=== PATIENT | female | born 1980 | race Caucasian/White ===

== ENCOUNTER 2018-07-23 00:46 | Inpatient (IN) ==
[2018-07-23] MEDS ORDERED: Ketorolac Inj 30 MG/ML (IVP) Vial IV.PUSH ONE (01:20)
[2018-07-23] MEDS ORDERED: HYDROmorphone PF Inj 0.5 MG/0.5 ML Syringe IV.PUSH STA (01:21)
[2018-07-23] MEDS ORDERED: Sod Chloride 0.9% Inj 1,000 ML IV.SIG SCH (01:30)
[2018-07-23] MEDS ORDERED: HYDROmorphone PF Inj 2 MG/ML Vial IV.PUSH STA (01:49)
[2018-07-23 02:12] LABS: Baso % (Auto) 0.5 % (0.0-2.0); Eos # (Auto) 0.1 th/mm3 (0.0-0.4); Hematocrit 37.2 % (35.0-46.0); Hemoglobin 13.1 gm/dL (11.6-15.3); Lymph % (Auto) 12.9 % (9.0-44.0); Mean Corpuscular HGB Conc 35.2 % (32.0-36.0); Mean Corpuscular Hemoglobin 30.8 pg (27.0-34.0); Mean Corpuscular Volume 87.7 fL (80.0-100.0); Mean Platelet Volume 8.4 fL (7.0-11.0); Mono # (Auto) 0.7 th/mm3 (0.0-0.9); Mono % (Auto) 8.4 % (0.0-8.0); Neut # (Auto) 6.2 th/mm3 (1.8-7.7); Neut % (Auto) 77.2 % (16.0-70.0); Platelet Count 222 th/mm3 (150-450); Red Blood Count 4.24 mil/mm3 (4.00-5.30); Red Cell Distribution Width 13.2 % (11.6-17.2)
[2018-07-23 02:26] LABS: Alanine Aminotransferase 10 U/L (10-53); Anion Gap 9 meq/L (5-15); Aspartate Aminotransferase 9 U/L (15-37); Blood Urea Nitrogen 10 mg/dL (7-18); Calcium 8.4 mg/dL (8.5-10.1); Carbon Dioxide 23.5 meq/L (21.0-32.0); Chloride 109 meq/L (98-107); Glomerular Filtration Rate Greater Than 89 mL/min (>89); Glucose,Random 94 mg/dL (74-106); Potassium 3.6 meq/L (3.5-5.1); Sodium 141 meq/L (136-145)
[2018-07-23 02:28] LABS: Alkaline Phosphatase 56 U/L (45-117); Total Protein 7.8 g/dL (6.4-8.2)
[2018-07-23] MEDS ORDERED: Gadobutrol PF 7.5 MMOL/7.5 ML Vial (for RAD) IV.SIG ONE (03:47)
--- NOTE | 2018-07-23 04:28 | MR ---
EXAM DATE: 07/23/2018 4:06 AM EDT AGE/SEX: 38 years / Female INDICATIONS: Osteomyelitis. low back pain with right radiculopathy. CLINICAL DATA: This is the patient's initial encounter. Patient reports that signs and symptoms have been present for 2 days and indicates a pain score of 5/10. MEDICAL/SURGICAL HISTORY: Sepsis. MRSA right hip. Endocarditis. . RIght hip surgery for osteom yelitis. COMPARISON: No prior exams available for comparison. TECHNIQUE: Multiplanar, multisequence MRI examination of the lumbar spine was performed without and with 7cc ml Gadavist (gadobutrol) contrast as a single exam dose. FINDINGS: There is no acute fracture or subluxation of the lumbar spine. Chronic L5 pars defects are present wi thout spondylolisthesis or significant marrow edema. No evidence of osteomyelitis. Conus terminus is normal at the level of L1. T12-L1: Normal. L1-L2: Normal. L2-L3: Slightly desiccated disc. No significant loss of height. There is diffuse bulging of the dis c annulus and mild bilateral facet osteoarthritis. There is mild foraminal stenosis, mostly on the le ft. L3-L4: The disc is desiccated. There is slight loss of height. There is bulging of the annulus. A f ocal central to right paracentral high intensity zone is present. There is mild bilateral facet osteo arthritis. No significant foraminal or spinal stenosis. L4-L5: The disc is desiccated and has mild loss of height. There is a moderate-sized central to rig ht paracentral extruded disc fragment. In the adjacent subarticular recess region is a rim-enhancing fluid collection that measures approximately 9 x 16 x 23 mm in size. There is moderate to severe spin al stenosis, especially the right lateral recess, and this extends downward within the central canal to L5/S1. The epidural enhancement extends down to S1 and into the right foramen at both L4/L5 and L5 /S1. L5-S1: The disc is slightly desiccated. Minimal loss of height. There is bulging of the annulus and moderate right, mild left facet osteoarthritis. Right lateral recess and right foraminal narrowing p resent.. CONCLUSION: 1. Right paracentral fluid collection posterior to the L5 vertebral body and with surrounding epidur al enhancement within the L4/L5 and L5/S1 right lateral recesses and foramina. There is associated ma ss effect on the transiting right L5 and S1 nerve roots and also the exiting L4 and L5 nerve roots. T he fluid collection is nonspecific; since there is a central to right paracentral extruded disc fragm ent at L4/L5, its possible this represents an epidural hematoma with reactive enhancement. An epidura l abscess is possible in the proper clinical setting. The fluid collection itself measures approximat teofilo 9 x 16 x 23 mm. The surrounding epidural enhancement is much larger. 2. No evidence of osteomyelitis. 3. Mild and uncomplicated/typical-appearing degenerative changes at L2/L3 and L3/L4 as described. Th ere is an associated focal annular fissure posteriorly of the L3/L4 disc. 4. Perivertebral soft tissues are within normal limits. 5. Chronic L5 pars defects. No associated spondylolisthesis. No acute fracture. Electronically signed by: Rogelio Fletcher MD 07/23/2018 4:27 AM EDT
[2018-07-23] MEDS ORDERED: Vancomycin Inj 1 GM/200 ML PIGGYBACK IV.SIG ONE (04:31)
[2018-07-23] MEDS ORDERED: Vancomycin Consult Pharmacy OTHER PRN (05:18)
--- NOTE | 2018-07-23 05:19 | ED ---
HPI General Chief complaint: Back Pain/Injury Stated complaint: Back Pain Time Seen by Provider: 07/23/18 01:02 Source: patient Mode of arrival: ambulatory Limitations: no limitations History of Present Illness HPI narrative: Patient is a 38-year-old female comes in complaining of lower back and hip pain. She has history of IV drug abuse in the past, but says she stopped using 2 years ago. He does report a relapse with 2 uses in May. She says she has not injected herself since that time. However, she does report self-medicating yesterday. She says she has had the pain on and off for the past few weeks, but it is been worse in the past 5 days. She reports history of fevers. She denies any injuries. She says the pain does radiate down her right leg. She says it feels like when she had osteomyelitis in the past. Severity is moderate. Related Data Allergies Allergy/AdvReac Type Severity Reaction Status Date / Time *MDRO Multi-Drug Resistant AdvReac Unknown Uncoded 08/13/16 09:54 Organism Review of Systems ROS: all other systems reviewed are negative Constitutional Reports fever(s) Cardiovascular Denies edema and Denies dyspnea Respiratory Denies cough Gastrointestinal Denies nausea and Denies vomiting Musculoskeletal Reports back pain Integumentary/Breasts Denies lesions and Denies rash Neurologic Denies focal weakness and Denies numbness PMFSH Medical History Medical History Chronic back pain (Acute) Degenerative disk disease (Acute) Drug abuse (Acute) Sciatica (Acute) Surgical History Surgical History No history of previous surgery (Acute) Social History Social History Substance History: Active Abuse Second Hand Smoke Exposure: No Smoking Status: Current every day smoker Tobacco Type: Cigarettes How Often Do You Have a Drink Containing Alcohol: Never Recent Travel in [facility] within the Last 8 Weeks: No Recent Out of Country Travel within the Last 8 Weeks: No Substance Abuse Detail Opiates: Substance Use Status: Active Route Used Substance Abuse: By Mouth Immunization History Tetanus Immunization: Unsure Hx Influenza Vaccine This Season: No Exam Narrative Exam Narrative: GENERAL: Awake and alert, no acute distress. SKIN: Focused skin assessment warm/dry. No wounds or signs of infection. HEAD: Atraumatic. Normocephalic. EYES: Pupils equal and round. No scleral icterus. ENT: Mucous membranes pink and moist. NECK: Trachea midline. No JVD. CARDIOVASCULAR: Regular rate and rhythm. No murmur appreciated. RESPIRATORY: No accessory muscle use. Clear to auscultation. Breath sounds equal bilaterally. GASTROINTESTINAL: Abdomen soft, non-tender, nondistended. MUSCULOSKELETAL: No obvious deformities. No clubbing. No cyanosis. No edema. Tender to palpation of the lower spine. Pain with movement of the right leg. Pulses intact. NEUROLOGICAL: Awake and alert. No obvious cranial nerve deficits. Motor grossly within normal limits. Normal speech. PSYCHIATRIC: Appropriate mood and affect; insight and judgment normal. Course Initial Documented Vital Signs Temperature 97.7 F 07/23/18 00:47 Pulse Rate 140 H 07/23/18 00:47 Respiratory Rate 20 07/23/18 00:47 Blood Pressure 122/83 07/23/18 00:47 Last Documented Vital Signs Temperature 97.7 F 07/23/18 00:47 Pulse Rate 117 H 07/23/18 00:59 Respiratory Rate 20 07/23/18 00:59 Blood Pressure 113/70 07/23/18 00:59 Pulse Oximetry 97 07/23/18 00:59 Medical Decision Making MDM Narrative Medical decision making narrative: Patient is a 38-year-old female who comes in complaining of low back pain with history of fevers. Exam shows tenderness to palpation. IV established, labs sent. Labs show elevated CRP. Patient originally went to [facility], but left because she did not like the way she was being treated. Records obtained from [facility] show an MRI without contrast that was concerning for an abscess. MRI here performed with contrast confirms the epidural abscess. Blood cultures sent. Patient given antibiotics. Given pain medicine. She will be admitted for further management. Medical Screen Exam Complete: Yes Emergency Medical Condition: Yes Medical Records Medical records reviewed: Yes I reviewed the patient's medical records. Lab Data Lab results reviewed: Yes I reviewed the patient's lab results. Result diagrams: 07/23/18 01:45 07/23/18 01:45 Lab Results 08/30/18 08/30/18 08/30/18 Range/Units 01:45 01:45 01:45 WBC 8.0 (4.0-11.0) th/mm3 RBC 4.24 (4.00-5.30) mil/mm3 Hgb 13.1 (11.6-15.3) gm/dL Hct 37.2 (35.0-46.0) % MCV 87.7 (80.0-100.0) fL MCH 30.8 (27.0-34.0) pg MCHC 35.2 (32.0-36.0) % RDW 13.2 (11.6-17.2) % Plt Count 222 (150-450) th/mm3 MPV 8.4 (7.0-11.0) fL Neut % (Auto) 77.2 H (16.0-70.0) % Lymph % (Auto) 12.9 (9.0-44.0) % [place] % (Auto) 8.4 H (0.0-8.0) % Eos % (Auto) 1.0 (0.0-4.0) % Baso % (Auto) 0.5 (0.0-2.0) % Neut # (Auto) 6.2 (1.8-7.7) th/mm3 Lymph # (Auto) 1.0 (1.0-4.8) th/mm3 [place] # (Auto) 0.7 (0.0-0.9) th/mm3 Eos # (Auto) 0.1 (0.0-0.4) th/mm3 Baso # (Auto) 0.0 (0.0-0.2) th/mm3 WBC Differential . Differential Comment Auto diff final ESR 27 H (0-20) mm/hr Sodium 141 (136-145) meq/L Potassium 3.6 (3.5-5.1) meq/L Chloride 109 H (98-107) meq/L Carbon Dioxide 23.5 (21.0-32.0) meq/L Anion Gap 9 (5-15) meq/L BUN 10 (7-18) mg/dL Creatinine 0.71 (0.50-1.00) mg/dL Estimated GFR Greater than 89 (>89) mL/min Random Glucose 94 (74-106) mg/dL Calcium 8.4 L (8.5-10.1) mg/dL Total Bilirubin 0.4 (0.2-1.0) mg/dL AST 9 L (15-37) U/L ALT 10 (10-53) U/L Alkaline Phosphatase 56 (45-117) U/L C-Reactive Protein 13.00 H (0.00-0.30) mg/dL Total Protein 7.8 (6.4-8.2) g/dL Albumin 3.0 L (3.4-5.0) g/dL Imaging Data Radiologist's impression: Lumbar Spine MRI 07/23/18 02:39 CONCLUSION: 1. Right paracentral fluid collection posterior to the L5 vertebral body and with surrounding epidural enhancement within the L4/L5 and L5/S1 right lateral recesses and foramina. There is associated mass effect on the transiting right L5 and S1 nerve roots and also the exiting L4 and L5 nerve roots. The fluid collection is nonspecific; since there is a central to right paracentral extruded disc fragment at L4/L5, its possible this represents an epidural hematoma with reactive enhancement. An epidural abscess is possible in the proper clinical setting. The fluid collection itself measures approximately 9 x 16 x 23 mm. The surrounding epidural enhancement is much larger. 2. No evidence of osteomyelitis. 3. Mild and uncomplicated/typical-appearing degenerative changes at L2/L3 and L3/L4 as described. There is an associated focal annular fissure posteriorly of the L3/L4 disc. 4. Perivertebral soft tissues are within normal limits. 5. Chronic L5 pars defects. No associated spondylolisthesis. No acute fracture. Discharge Plan Discharge Disposition Patient Disposition: 30 Still Patient Discharge Condition Condition: Stable Discharge Details Diagnosis: Epidural abscess Physicians Team ED Provider: Kristi Mcarthur Primary Care Provider: Primary Care Udayi,No Discharge Interventions Interventions: Vital Signs Last Done: 07/23/18 00:59 Status ED Status: With Doctor
[2018-07-23] MEDS ORDERED: Naloxone Inj 0.4 MG/ML Vial IV.PUSH PRN (05:58)
--- NOTE | 2018-07-23 06:00 | P.HPIM ---
History of Present Illness Primary Care Physician: No Primary Care Physician History of Present Illness: 38-year-old female with a history of endocarditis in the past, as well as right hip osteomyelitis status post treatment several years ago who presents with a one-month history of gradually worsening low back pain, with one-week history of constant sharp lower back pain radiating to the right hip. Denies any right leg weakness. Patient also experienced fever over the past few days. Denies any chest pain, shortness of breath, nausea, vomiting. She does report using IV Dilaudid in May. Inpatient Certification: I certify that the inpatient services were ordered in accordance with Medicare regulations governing the order. This includes certification that hospital inpatient services are reasonable and necessary and in the case of services not specified as inpatient-only under 42 CFR 419.22(n), that they are appropriately provided as inpatient services in accordance to with the 2-midnight benchmark under 43 CFR 412.3(e) Estimated Total Length of Stay (Days): 3 Plans for Post Hospital Care: SNF Review of Systems All other systems reviewed negative except as stated in HPI PMFSH - History History Provided By: Patient - Medical History Medical History: Medical History (Last Reviewed 07/23/18 @ 05:16 by Kristi Mcarthur MD) Chronic back pain Degenerative disk disease Drug abuse Sciatica - Surgical History Surgical History: Surgical History (Last Reviewed 07/23/18 @ 05:16 by Kristi Mcarthur MD) No history of previous surgery - Family History Family History: Family History (Last Updated 07/23/18 @ 05:53 by Hank Molina MD) Father Lung cancer Mother Lung cancer Father CAD (coronary artery disease) Mother CAD (coronary artery disease) - Tobacco History Second Hand Smoke Exposure: No Tobacco Use In Past 30 Days: Yes Smoking Status: Current every day smoker Tobacco Type: Cigarettes - Alcohol History How Often Do You Have a Drink Containing Alcohol: Never - Substance Use History Substance History: Active Abuse - Substance Use Type Opiates Status: Active Route Used: By Mouth - Travel History Recent Travel in the [place] Within the Last 8 Weeks: No Recent Travel Out of the Country Within the Last 8 Weeks: No - Immunization History Tetanus Immunization: Unsure Hx Influenza Vaccine This Season: No Medications and Allergies Active Medications: Active Medications Sodium Chloride (Ns Inj) 1,000 mls @ 0 mls/hr IV.SIG BOLUS NURY Last Admin: 07/23/18 01:57 Dose: 1,000 mls/hr Cefepime HCl 2,000 mg/ Sodium (Chloride) 100 mls @ 200 mls/hr IV.SIG Q8H NURY Sodium Chloride (Ns Inj) 1,000 mls @ 100 mls/hr IV.CONT .Q10H NURY Pharmacy Profile Note (Vancomycin Consult Pharmacy) 1 each OTHER UNSCH PRN PRN Reason: Pharmacy to dose Sodium Chloride (Ns Flush) 2 ml IV.FLUSH BID NURY Sodium Chloride (Ns Flush) 2 ml IV.FLUSH PRN PRN PRN Reason: FLUSH AFTER USING IV ACCESS Allergies Allergy/AdvReac Type Severity Reaction Status Date / Time *MDRO Multi-Drug Resistant AdvReac Unknown Uncoded 08/13/16 09:54 Organism Exam Vital signs: Vital Signs 07/23/18 00:47 07/23/18 00:59 Temperature 97.7 F Pulse Rate 140 H 117 H Respiratory Rate 20 20 Blood Pressure 122/83 113/70 Pulse Oximetry 97 Intake & Output 07/22/18 07/22/18 07/23/18 06:59 18:59 06:59 Weight 65.771 kg Narrative: GENERAL: Patient lying in bed. Appears uncomfortable. Alert and oriented 3. Patient examined with nurse present. SKIN: Warm and dry. HEAD: Atraumatic. Normocephalic. EYES: Pupils equal and round. No scleral icterus. No injection or drainage. ENT: No nasal bleeding or discharge. Mucous membranes pink and moist. NECK: Trachea midline. No JVD. CARDIOVASCULAR: Regular rate and rhythm. RESPIRATORY: No accessory muscle use. Clear to auscultation. Breath sounds equal bilaterally. GASTROINTESTINAL: Abdomen soft, non-tender, nondistended. Hepatic and splenic margins not palpable. MUSCULOSKELETAL: Extremities without clubbing, cyanosis, or edema. No obvious deformities. Spine tender to palpation at level of L5. No erythema or observed swelling. NEUROLOGICAL: Awake and alert. No obvious cranial nerve deficits. Motor grossly within normal limits. Five out of 5 muscle strength in the arms and legs. Normal speech. PSYCHIATRIC: Appropriate mood and affect; insight and judgment normal. Results - Labs CBC & Chem 7: 07/23/18 01:45 07/23/18 01:45 Labs: Short CBC 07/23/18 Range/Units 01:45 WBC 8.0 (4.0-11.0) th/mm3 Hgb 13.1 (11.6-15.3) gm/dL Hct 37.2 (35.0-46.0) % Plt Count 222 (150-450) th/mm3 BMP 07/23/18 01:45 Sodium 141 Potassium 3.6 Chloride 109 H Carbon Dioxide 23.5 BUN 10 Creatinine 0.71 Calcium 8.4 L Liver Function 07/23/18 Range/Units 01:45 Total Bilirubin 0.4 (0.2-1.0) mg/dL AST 9 L (15-37) U/L ALT 10 (10-53) U/L Alkaline Phosphatase 56 (45-117) U/L Albumin 3.0 L (3.4-5.0) g/dL - Imaging Impressions Lumbar Spine MRI 07/23/18 02:39 CONCLUSION: 1. Right paracentral fluid collection posterior to the L5 vertebral body and with surrounding epidural enhancement within the L4/L5 and L5/S1 right lateral recesses and foramina. There is associated mass effect on the transiting right L5 and S1 nerve roots and also the exiting L4 and L5 nerve roots. The fluid collection is nonspecific; since there is a central to right paracentral extruded disc fragment at L4/L5, its possible this represents an epidural hematoma with reactive enhancement. An epidural abscess is possible in the proper clinical setting. The fluid collection itself measures approximately 9 x 16 x 23 mm. The surrounding epidural enhancement is much larger. 2. No evidence of osteomyelitis. 3. Mild and uncomplicated/typical-appearing degenerative changes at L2/L3 and L3/L4 as described. There is an associated focal annular fissure posteriorly of the L3/L4 disc. 4. Perivertebral soft tissues are within normal limits. 5. Chronic L5 pars defects. No associated spondylolisthesis. No acute fracture. Caprini VTE Risk Assessment Caprini VTE Risk Assessment: No/Low Risk (score <= 1) Caprini Risk Assessment Model: Point Value = 1 Point Value = 2 Point Value = 3 Point Value = 5 Age 41-60 Minor surgery BMI > 25 kg/m2 Swollen legs Varicose veins or History of unexplained or recurrent spontaneous Oral contraceptives or hormone replacement Sepsis (< 1 month) Serious lung disease, including pneumonia (< 1 month) Abnormal pulmonary function Acute myocardial infarction Congestive heart failure (< 1 month) History of inflammatory bowel disease Medical patient at bed rest Age 61-74 Arthroscopic surgery Major open surgery (> 45 min) Laparoscopic surgery (> 45 min) Malignancy Confined to bed (> 72 hours) Immobilizing plaster cast Central venous access Age >= 75 History of VTE Family history of VTE Factor V Leiden Prothrombin [id number] Lupus anticoagulant Anticardiolipin antibodies Elevated serum homocysteine Heparin-induced thrombocytopenia Other congenital or acquired thrombophilia Stroke (< 1 month) Elective arthroplasty Hip, pelvis, or leg fracture Acute spinal cord injury (< 1 month) Prophylaxis Regimen: Total Risk Factor Score Risk Level Prophylaxis Regimen 0-1 Low Early ambulation 2 Moderate Order ONE of the following: *Sequential Compression Device (SCD) *Heparin 5000 units SQ BID 3-4 Higher Order ONE of the following medications: *Heparin 5000 units SQ TID *Enoxaparin/Lovenox 40 mg SQ daily (WT < 150 kg, CrCl > 30 mL/min) *Enoxaparin/Lovenox 30 mg SQ daily (WT < 150 kg, CrCl > 10-29 mL/min) *Enoxaparin/Lovenox 30 mg SQ BID (WT < 150 kg, CrCl > 30 mL/min) AND/OR *Sequential Compression Device (SCD) 5 or more Highest Order ONE of the following medications: *Heparin 5000 units SQ TID (Preferred with Epidurals) *Enoxaparin/Lovenox 40 mg SQ daily (WT < 150 kg, CrCl > 30 mL/min) *Enoxaparin/Lovenox 30 mg SQ daily (WT < 150 kg, CrCl > 10-29 mL/min) *Enoxaparin/Lovenox 30 mg SQ BID (WT < 150 kg, CrCl > 30 mL/min) AND *Sequential Compression Device (SCD) Assessment and Plan - Plan //Epidural abscess. Suspected bacterial infection //Suspected sepsis. //Possible endocarditis -With tachycardia, subjective fevers at home -We will order echocardiogram. = Epidural abscess seen on CT lumbar spine. Sedimentation rate 27, CRP 13. Blood cultures pending. Start on broad-spectrum antibiotics, will consult neurosurgery and infectious disease. Follow-up blood cultures. By mouth narcotics for pain control //History of IV drug use. Cessation counseling provided. Avoid IV narcotics. Discussed Condition With: Patient, nurse, ED physician.
[2018-07-23] MEDS: oxyCODONE/Acetaminophen 10/325 Tablet PO PRN ×2 (06:19→22:03)
[2018-07-23] MEDS ORDERED: Vancomycin Inj 1,000 MG in Sodium Chlor 0.9% Inj 250 ML IV.SIG ONE (07:00)
[2018-07-23] MEDS: Sod Chloride 0.9% Inj 1,000 ML IV.CONT SCH ×2 (08:09→20:38)
--- NOTE | 2018-07-23 09:09 | P.CONNS ---
History of Present Illness Service: Neurosurgery Consult date: 07/23/18 Requesting Physician: Hank Molina Reason for Consult: L5-S1 epidural abscess Primary Care Provider: No Primary Care Physician Family Provider: No Primary Care Physician History of Present Illness: 38-year-old female with complaint of low back pain for the past 6 weeks and more recently over the last week or so she is developed pain rating down the right leg into the foot. She relates a history of right hip abscess/ infection several years ago which required surgical drainage at [facility] reportedly and has had subsequent numbness in the right thigh and leg which is chronic. She denies any left lower extremity symptoms. She has a history of IV drug abuse and states that she had quit for 2 years ago but in May 2018 she shot up Dilaudid again couple times but relates that she has not injected any IV drugs since then. She also relates having a low-grade fever. She relates that she was diagnosed with endocarditis twice. She was also seen at [facility] yesterday and relates that she was diagnosed with an abscess but did not like the way they were treating her and left hospital and came to [facility]. Denies any bowel bladder incontinence. MRI scan lumbar spine obtained reveals right L5-S1 epidural ventrolateral collection suspicious for an abscess along with L4-5 central disc protrusion. There is enhancement around this fluid collection with associated spinal stenosis. She relates that her pain is intractable and the pain medication she is getting her not doing anything for her and requesting that something stronger be given. She relates anytime she moves or tries to get up the right hip leg pain worsens with excruciating pain. She was sleeping when I first entered room but subsequently started crying and related severe pain. Review of Systems Constitutional: Reports fever(s), Denies anorexia, Denies body ache(s), Denies chills, Denies daytime sleepiness, Denies excessive sweating, Denies fatigue, Denies headache(s), Denies increased appetite, Denies lack of energy, Denies malaise, Denies night sweats, Denies weakness, Denies weight gain, Denies weight loss, Denies other Eyes: Denies blind spots, Denies blurry vision, Denies bulging eyes, Denies change in vision, Denies double vision, Denies discharge, Denies dry eyes, Denies floaters, Denies irritation, Denies itchy eyes, Denies loss of vision, Denies pain, Denies requires corrective lenses, Denies sensitivity to light, Denies other Ears, Nose, Mouth, and Throat: Denies abnormal hearing, Denies bleeding gums, Denies bad breath, Denies change in voice, Denies dental pain, Denies difficulty swallowing, Denies dizziness, Denies dry mouth, Denies ear discharge , Denies ear pain, Denies facial pain, Denies headache(s), Denies hearing loss, Denies hoarseness, Denies lip swelling, Denies nosebleed, Denies mouth lesions, Denies mouth pain, Denies nasal congestion, Denies nasal discharge, Denies nasal obstruction, Denies nasal trauma, Denies neck lump, Denies neck pain, Denies nose pain, Denies pain with swallowing, Denies poor balance, Denies post nasal drip, Denies ringing in the ears, Denies sinus pain, Denies sinus pressure , Denies sore throat, Denies throat swelling, Denies tongue swelling, Denies other Cardiovascular: Denies chest pain, Denies chest pain at rest, Denies chest pain with activity, Denies excessive sweating, Denies fainting, Denies fast heart rate, Denies foot swelling, Denies generalized swelling, Denies irregular heart rhythm, Denies leg pain with activity, Denies leg sores, Denies leg swelling, Denies lightheadedness, Denies radiating jaw, neck or arm pain, Denies rapid, pounding, or irregular heartbeat, Denies shortness of breath, Denies shortness of breath with activity, Denies shortness of breath when lying down, Denies shortness of breath causing sudden awakening, Denies slow heart rate, Denies other Gastrointestinal: Denies abdominal pain, Denies belching, Denies black, tarry stools, Denies bloating, Denies bright, red blood in stools, Denies change in bowel habits, Denies constant urge to pass stool, Denies change in stools, Denies coffee ground vomit, Denies constipation, Denies cramping, Denies difficulty swallowing, Denies excessive passing of gas, Denies feeling full early, Denies heartburn, Denies incontinent of stools, Denies loose stools, Denies nausea, Denies pain with swallowing, Denies vomiting, Denies vomiting blood, Denies other Genitourinary: Denies abnormal periods, Denies abnormal vaginal bleeding, Denies absent period, Denies bleeding between periods, Denies blood in urine, Denies difficulty starting urination, Denies difficulty urinating, Denies dribbling after urination, Denies frequent nighttime urination, Denies genital itching, Denies genital lesions, Denies heavy periods, Denies hot flashes, Denies light periods, Denies nipple discharge, Denies painful intercourse, Denies painful periods, Denies painful urination, Denies pelvic pain, Denies prolapse symptoms, Denies sexual problems, Denies side pain, Denies urinary incontinence, Denies urinary urgency, Denies vaginal discharge, Denies vaginal dryness, Denies vaginal odor, Denies vaginal itching, Denies other Musculoskeletal: Reports abnormal walking, Reports back pain, Reports joint pain , Reports limited joint movement, Reports numbness, Reports stiffness Skin/Breast: Denies acne, Denies bleeding lesions, Denies boil, Denies breast swelling, Denies breast skin changes, Denies breast pain, Denies breast lump, Denies change in breast shape, Denies change in hair, Denies change in skin color, Denies changing lesions, Denies dry skin, Denies excessive hair growth, Denies hair loss, Denies itching, Denies lesions, Denies nail changes, Denies new lesions, Denies nipple discharge, Denies non-healing lesions, Denies redness , Denies sensitivity to light, Denies rash, Denies skin pain, Denies skin ulcer , Denies sores, Denies stretch ybarra, Denies unusual bruising, Denies wounds, Denies yellowing of the skin, Denies other Neurologic: Reports numbness, Reports sensory deficit, Denies abnormal hearing, Denies abnormal movements, Denies abnormal speech, Denies abnormal walking, Denies behavioral changes, Denies burning sensations, Denies confusion, Denies dizziness, Denies fainting, Denies frequent falls, Denies headache(s), Denies lack of coordination, Denies localized weakness, Denies loss of vision, Denies memory loss, Denies other visual disturbances, Denies radiating pain, Denies restless legs, Denies convulsions, Denies seizure-like activity, Denies tingling , Denies tingling/numbness/burning sensations, Denies tremor(s), Denies unsteadiness, Denies weakness, Denies other Psychiatric: Denies abnormal sleep pattern, Denies anxiety, Denies behavioral changes, Denies change in appetite, Denies change in sex drive, Denies confusion , Denies depression, Denies difficulty concentrating, Denies hearing things others do not hear, Denies hopelessness, Denies irritability, Denies lack of enjoyment, Denies memory loss, Denies mood swings, Denies panic attacks, Denies paranoia, Denies seeing things others do not see, Denies sensing things others do not sense, Denies tactile hallucinations, Denies thoughts of hurting/killing others, Denies thoughts of hurting/killing yourself, Denies other Endocrine: Denies cold intolerance, Denies excessive sweating, Denies flushing, Denies heat intolerance, Denies increased hunger, Denies increased thirst, Denies increased urination, Denies rapid, pounding, or irregular heartbeat, Denies other Allergic/Immunologic: Denies GI upset with certain foods, Denies hives, Denies itchy eyes, Denies lip swelling, Denies seasonal runny nose, Denies throat swelling, Denies tongue swelling, Denies wheezing, Denies other PMFSH - History History Provided By: Patient - Medical History Medical History: Medical History (Last Updated 07/23/18 @ 08:52 by Jaspal Bowie MD) Abscess of right hip Chronic back pain Degenerative disk disease Drug abuse Endocarditis Hip osteomyelitis, right Sciatica - Family History Family History: Family History (Last Updated 07/23/18 @ 05:53 by Hank Molina MD) Father Lung cancer Mother Lung cancer Father CAD (coronary artery disease) Mother CAD (coronary artery disease) - Tobacco History Second Hand Smoke Exposure: No Tobacco Use In Past 30 Days: Yes Smoking Status: Current every day smoker Tobacco Type: Cigarettes - Alcohol History How Often Do You Have a Drink Containing Alcohol: Never - Substance Use History Substance History: Active Abuse - Substance Use Type Opiates Status: Active Route Used: By Mouth - Travel History Recent Travel in the [facility] Within the Last 8 Weeks: No Recent Travel Out of the Country Within the Last 8 Weeks: No - Immunization History Tetanus Immunization: Unsure Hx Influenza Vaccine This Season: No Medications and Allergies Active Medications: Active Medications Sodium Chloride (Ns Inj) 1,000 mls @ 0 mls/hr IV.SIG BOLUS [facility] Last Admin: 07/23/18 01:57 Dose: 1,000 mls/hr Cefepime HCl 2,000 mg/ Sodium (Chloride) 100 mls @ 200 mls/hr IV.SIG Q8H NURY Sodium Chloride (Ns Inj) 1,000 mls @ 100 mls/hr IV.CONT .Q10H [facility] Last Admin: 07/23/18 08:09 Dose: 100 mls/hr Naloxone HCl (Narcan Inj) 0.4 mg IV.PUSH UNSCH PRN PRN Reason: SEE LABEL COMMENTS Oxycodone/Acetaminophen (Percocet 10/325 Mg) 1 tab PO Q6H PRN PRN Reason: PAIN SCALE 6 TO 10 Last Admin: 07/23/18 06:19 Dose: 1 tab Oxycodone/Acetaminophen (Percocet 5/325 Mg) 1 tab PO Q6H PRN PRN Reason: PAIN SCALE 3 TO 5 Pharmacy Profile Note (Vancomycin Consult Pharmacy) 1 each OTHER UNSCH PRN PRN Reason: Pharmacy to dose Sodium Chloride (Ns Flush) 2 ml IV.FLUSH BID [facility] Last Admin: 07/23/18 08:09 Dose: 2 ml Sodium Chloride (Ns Flush) 2 ml IV.FLUSH PRN PRN PRN Reason: FLUSH AFTER USING IV ACCESS Allergies Allergy/AdvReac Type Severity Reaction Status Date / Time *MDRO Multi-Drug Resistant AdvReac Unknown Uncoded 08/13/16 09:54 Organism Exam Vital signs: Vital Signs 07/23/18 00:47 07/23/18 00:59 07/23/18 06:08 Temperature 97.7 F Pulse Rate 140 H 117 H 87 Respiratory Rate 20 20 18 Blood Pressure 122/83 113/70 106/70 Pulse Oximetry 97 99 07/23/18 07:55 Temperature 99.3 F Pulse Rate 95 H Respiratory Rate 16 Blood Pressure 98/55 L Pulse Oximetry 96 Intake & Output 07/22/18 07/23/18 07/23/18 18:59 06:59 18:59 Weight 65.771 kg - Constitutional agitated - Routine HEENT Exam Head: Present: normocephalic, atraumatic Eye: Present: EOMI, PERRL ENT: Present: mucous membranes moist, oropharynx clear, nares patent, external ear normal - Routine Neck Exam Present: supple, full ROM Comments: Complains of right leg pain when she flexes her neck but no neck or thoracic back pain - Routine Respiratory Exam Present: CTA bilaterally - Routine Cardiovascular Exam Present: S1, S2, tachycardia - Routine Abdominal Exam Present: soft, normoactive bowel sounds - Routine Extremities Exam Present: full ROM, pulses intact Comments: Complains of severe right buttock hip and thigh pain with movement of the right leg - Routine Skin Exam Present: intact, petechiae, scars (Multiple IV injection sites in the upper and lower extremities are noted) - Routine Neurological Exam Present: oriented X3, CN II-XII intact, sensory deficit (Decreased sensation the right thigh around the surgery site and relates that she decreased sensation the whole leg compared to left side which is chronic), motor deficit ( Giveaway weakness proximally in the right thigh due to pain), moving all extremities, normal speech Results - Laboratory Findings CBC and BMP: 07/23/18 01:45 07/23/18 01:45 Abnormal lab findings: Abnormal Labs 07/23/18 07/23/18 07/23/18 01:45 01:45 01:45 Neut % (Auto) 77.2 H [place] % (Auto) 8.4 H ESR 27 H Chloride 109 H Calcium 8.4 L AST 9 L C-Reactive Protein 13.00 H Albumin 3.0 L - Diagnostic Findings Additional findings: Impressions Lumbar Spine MRI 07/23/18 02:39 CONCLUSION: 1. Right paracentral fluid collection posterior to the L5 vertebral body and with surrounding epidural enhancement within the L4/L5 and L5/S1 right lateral recesses and foramina. There is associated mass effect on the transiting right L5 and S1 nerve roots and also the exiting L4 and L5 nerve roots. The fluid collection is nonspecific; since there is a central to right paracentral extruded disc fragment at L4/L5, its possible this represents an epidural hematoma with reactive enhancement. An epidural abscess is possible in the proper clinical setting. The fluid collection itself measures approximately 9 x 16 x 23 mm. The surrounding epidural enhancement is much larger. 2. No evidence of osteomyelitis. 3. Mild and uncomplicated/typical-appearing degenerative changes at L2/L3 and L3/L4 as described. There is an associated focal annular fissure posteriorly of the L3/L4 disc. 4. Perivertebral soft tissues are within normal limits. 5. Chronic L5 pars defects. No associated spondylolisthesis. No acute fracture. Assessment and Plan - Assessment (1) Abscess in epidural space of lumbar spine Code(s): G06.1 - Intraspinal abscess and granuloma Status: Acute - Plan 38-year-old lady with a 6 week history of low back pain with subsequent radiation to the right leg with intractable pain. She has low-grade fever with elevated sed rate and C-reactive protein an MRI scan consistent with a L5-S1 epidural abscess eccentric to the right side. She has a history of IV drug abuse with Dilaudid more recently in May 2018 was last time she reportedly injected a few times. She has a history of endocarditis 2 as well as a right hip abscess and osteomyelitis treated several years ago. I recommended a L5-S1 laminectomy with epidural abscess evacuation and subsequent parenteral antibiotics for 6-8 weeks as per the discretion of infectious disease. She is also counseled on cessation of IV drug abuse otherwise any treatment efforts would like to be futile due to risk for recurrent infections with risk of paralysis/sepsis/. Pain management is also going to be challenging given her history of drug abuse and she understands that I do not participate in chronic pain management. The risks and benefits involved with the surgery were discussed and no guarantees given. She requested we proceed and accordingly we will have this undertaken today.
[2018-07-23] MEDS ORDERED: Bisacodyl 10 MG Supp RECTAL PRN (09:15)
[2018-07-23] MEDS ORDERED: Aluminum/Magnesium/Simethacone Susp 30 ML UDC PO PRN (09:15)
[2018-07-23] MEDS ORDERED: Menthol 5.8 MG Lozenge BUCCAL PRN (09:15)
[2018-07-23] MEDS ORDERED: Acetaminophen 325 MG Tablet PO PRN (09:15)
[2018-07-23] MEDS: Morphine Sulfate Inj 2 MG/ML Vial IV.PUSH PRN ×3 (09:36→22:40)
--- NOTE | 2018-07-23 10:16 | XR ---
EXAM DATE: 07/23/2018 10:13 AM EDT AGE/SEX: 38 years / Female INDICATIONS: . Infiltrate CLINICAL DATA: This is the patient's initial encounter. Patient reports that signs and symptoms have been present for 3 days and indicates a pain score of 10/10. MEDICAL/SURGICAL HISTORY: . endocarditis, hx of MRSA, Hep C, measles . hip surgery [place] [facility] [place]. . FINDINGS: AP and lateral views of the chest demonstrate the lungs to be symmetrically aerated without evidence of mass, infiltrate or effusion. The cardiomediastinal contours are unremarkable. Osseous structure s are intact. The previously noted patchy bilateral infiltrates have resolved. CONCLUSION: No acute intrathoracic disease. Electronically signed by: Ashvin Bansal MD 07/23/2018 10:15 AM EDT
--- NOTE | 2018-07-23 12:40 | P.PNIM ---
Subjective Interval history: 38-year-old female with a history of endocarditis in the past, as well as right hip osteomyelitis status post treatment several years ago who presents with a one-month history of gradually worsening low back pain, with one-week history of constant sharp lower back pain radiating to the right hip. Denies any right leg weakness. Patient also experienced fever over the past few days. Denies any chest pain, shortness of breath, nausea, vomiting. She does report using IV Dilaudid in PATIENT IS GOING FOR SURGERY WITH NEUROSURGERY TODAY REGARDING HER LUMBAR ABSCESS L5-S1 laminectomy with epidural abscess evacuation and subsequent parenteral antibiotics for 6-8 weeks as per the discretion of infectious disease. PATIENT ASKING FOR IV PAIN MEDS SOON SHE SAW HER RN AND MYSELF TO GO FOR SURGERY TODAY- NEEDS TO CONSENT WITH NEUROSURGERY AND ANESTHESIA BEFORE GETS PAIN MEDS WILL NEED PAIN CONTROL POST OP Physical Exam Vital signs: Vital Signs 07/23/18 00:47 07/23/18 00:59 07/23/18 06:08 Temperature 97.7 F Pulse Rate 140 H 117 H 87 Respiratory Rate 20 20 18 Blood Pressure 122/83 113/70 106/70 Pulse Oximetry 97 99 07/23/18 07:55 07/23/18 10:04 Temperature 99.3 F Pulse Rate 95 H Respiratory Rate 16 18 Blood Pressure 98/55 L Pulse Oximetry 96 Intake & Output 07/22/18 07/23/18 07/23/18 18:59 06:59 18:59 Intake Total 1350 / 1350 Balance 1350 / 1350 Weight 65.771 kg Intake: IV 1350 / 1350 Maxipime Inj 1,000 MG In NS Inj 100 / 100 100 ML @ 200 mls/hr IV.SIG ONCE ONE Rx#:[id number] NS Inj 1,000 ML @ Wide Open IV. 1000 / 1000 SIG BOLUS NURY Rx#:[id number] Vancomycin Inj 1,000 MG In NS 250 / 250 Inj 250 ML @ 250 mls/hr IV.SIG ONCE ONE Rx#:[id number] Narrative: GENERAL: Patient lying in bed. Appears uncomfortable. Alert and oriented 3. Patient examined with nurse present. SKIN: Warm and dry. HEAD: Atraumatic. Normocephalic. EYES: Pupils equal and round. No scleral icterus. No injection or drainage. ENT: No nasal bleeding or discharge. Mucous membranes pink and moist. NECK: Trachea midline. No JVD. CARDIOVASCULAR: Regular rate and rhythm. RESPIRATORY: No accessory muscle use. Clear to auscultation. Breath sounds equal bilaterally. GASTROINTESTINAL: Abdomen soft, non-tender, nondistended. Hepatic and splenic margins not palpable. MUSCULOSKELETAL: Extremities without clubbing, cyanosis, or edema. No obvious deformities. Spine tender to palpation at level of L5. No erythema or observed swelling. NEUROLOGICAL: Awake and alert. No obvious cranial nerve deficits. Motor grossly within normal limits. Five out of 5 muscle strength in the arms and legs. Normal speech. PSYCHIATRIC: Appropriate mood and affect; insight and judgment normal. Results - Labs CBC & Chem 7: 07/23/18 01:45 07/23/18 01:45 Laboratory Results - last 24 hr 07/23/18 07/23/18 07/23/18 01:45 01:45 01:45 WBC 8.0 RBC 4.24 Hgb 13.1 Hct 37.2 MCV 87.7 MCH 30.8 MCHC 35.2 RDW 13.2 Plt Count 222 MPV 8.4 Neut % (Auto) 77.2 H Lymph % (Auto) 12.9 Coffee % (Auto) 8.4 H Eos % (Auto) 1.0 Baso % (Auto) 0.5 Neut # (Auto) 6.2 Lymph # (Auto) 1.0 Coffee # (Auto) 0.7 Eos # (Auto) 0.1 Baso # (Auto) 0.0 WBC Differential . Differential Comment Auto diff final ESR 27 H Sodium 141 Potassium 3.6 Chloride 109 H Carbon Dioxide 23.5 Anion Gap 9 BUN 10 Creatinine 0.71 Estimated GFR Greater than 89 Random Glucose 94 Calcium 8.4 L Total Bilirubin 0.4 AST 9 L ALT 10 Alkaline Phosphatase 56 C-Reactive Protein 13.00 H Total Protein 7.8 Albumin 3.0 L - Imaging Impressions Chest X-Ray 07/23/18 00:00 CONCLUSION: No acute intrathoracic disease. Lumbar Spine MRI 07/23/18 02:39 CONCLUSION: 1. Right paracentral fluid collection posterior to the L5 vertebral body and with surrounding epidural enhancement within the L4/L5 and L5/S1 right lateral recesses and foramina. There is associated mass effect on the transiting right L5 and S1 nerve roots and also the exiting L4 and L5 nerve roots. The fluid collection is nonspecific; since there is a central to right paracentral extruded disc fragment at L4/L5, its possible this represents an epidural hematoma with reactive enhancement. An epidural abscess is possible in the proper clinical setting. The fluid collection itself measures approximately 9 x 16 x 23 mm. The surrounding epidural enhancement is much larger. 2. No evidence of osteomyelitis. 3. Mild and uncomplicated/typical-appearing degenerative changes at L2/L3 and L3/L4 as described. There is an associated focal annular fissure posteriorly of the L3/L4 disc. 4. Perivertebral soft tissues are within normal limits. 5. Chronic L5 pars defects. No associated spondylolisthesis. No acute fracture. Assessment and Plan - Plan Epidural abscess. Suspected bacterial infection Suspected sepsis. Possible endocarditis -With tachycardia, subjective fevers at home -We will order echocardiogram. = Epidural abscess seen on CT lumbar spine. Sedimentation rate 27, CRP 13. Blood cultures pending. Start on broad-spectrum antibiotics, will consult neurosurgery and infectious disease. Follow-up blood cultures. By mouth narcotics for pain control L5-S1 laminectomy with epidural abscess evacuation and subsequent parenteral antibiotics for 6-8 weeks as per the discretion of infectious disease. History of IV drug use. Cessation counseling provided. Avoid IV narcotics. NONCOMPLIANCE HX OF ENDOCARDITIS Code Status: FULL CODE Discussed Condition With: LAZARO RN AND PT AND CM AND NEUROSURGERY Discharge Planning: ONCE CLEARED BY ID AND NEUROSURGERY
[2018-07-23] MEDS ORDERED: Bupivacaine/Epinephrine 0.5% Inj 50 ML Vial ONE (12:47)
[2018-07-23] MEDS ORDERED: Thrombin Topical Soln 5,000 UNIT Vial TOPICAL ONE (12:47)
[2018-07-23] MEDS ORDERED: Gelatin Size 100 Topical Foam ONE (12:47)
[2018-07-23] MEDS ORDERED: fentaNYL Citrate Inj 250 MCG/5 ML Ampul ONE (13:04)
[2018-07-23] MEDS ORDERED: Lidocaine PF 1% Inj 5 ML Syringe INFILTRATN ONE (14:00)
[2018-07-23] MEDS ORDERED: Glycopyrrolate Inj 1 MG/5 ML Syringe IV.PUSH ONE (14:00)
[2018-07-23] MEDS ORDERED: Neostigmine Inj 5 MG/5 ML Syringe IV.PUSH ONE (14:00)
[2018-07-23] MEDS ORDERED: Phenylephrine/NS 1000 MCG/10ML Syringe IV.PUSH ONE (14:00)
--- NOTE | 2018-07-23 14:47 | P.OP ---
- Preoperative Diagnosis (1) Abscess in epidural space of lumbar spine - Postoperative Diagnosis (1) Abscess in epidural space of lumbar spine Date of procedure: 07/23/18 Procedure: Right L5-S1 hemilaminotomy with epidural abscess evacuation; microsurgical technique Anesthesia: MOSES Surgeon: Jaspal Bowie MD Air Pollution Auditor: Alisha Holbrook Estimated blood loss (mL): 25 Operation and Findings: Following administration of general endotracheal anesthesia, sequential compression devices were placed for DVT prophylaxis. She was then turned in prone position on Masood frame and the Donnie table and all pressure points adequately padded. The lumbar region was then shaved and prepped with a Betadine and ChloraPrep. Sterile draping undertaken with Ioban. Midline incision overlying the L5-S1 level was then made after infiltrating the skin with 0.5% Marcaine with epinephrine solution. The skin incision was made extending down through the fascia and then using the subperiosteal plane on the right side the muscular attachments to the spinous process and lamina were detached. Intraoperative fluoroscopy was used for level confirmation and further dissection undertaken using microtechnique with microscope magnification. The inferior portion of the right L5 and superior portion of the S1 lamina was then drilled out and the underlying ligamentum flavum also removed. Epidural abscess the ventral lateral aspect of the thecal sac was identified with a gross yellow pus which was suctioned out and sent for cultures and the lateral recess decompressed. There was some surrounding granulation tissue which was also resected. Epidural venous stasis undertaken with the bipolar cautery. The area was then copiously irrigated with vancomycin solution. The retractors removed and the muscle fascia proximal using 2-0 Vicryl interrupted stitches. 3-0 Vicryl subcuticular stitches were also placed in an interrupted fashion and planned skin closure was with Mastisol and Steri- Strips. A sterile dressing was then applied and the patient then turned in the supine position and extubated and taken to recovery room in stable condition. There were no intraoperative complications and all sponge and needle count was correct at the end of the procedure. Estimated blood loss about 25 cc.
--- NOTE | 2018-07-23 15:05 | XR ---
EXAM DATE: 07/23/2018 3:04 PM EDT AGE/SEX: 38 years / Female INDICATIONS: L5,S1 level localization for laminectomy for epidural abscess. CLINICAL DATA: This is the patient's subsequent encounter. Patient reports that signs and symptoms h ave been present for 1 day and indicates a pain score of Nonresponsive. MEDICAL/SURGICAL HISTORY: . Sepsis. MRSA right hip. Endocarditis. . RIght hip surgery for oste omyelitis. COMPARISON: No prior exams available for comparison. FINDINGS: A single lateral view of the lower lumbar spine was performed. There is a localization device placed posteriorly at the last disc space level which appears to be L5-S1. CONCLUSION: Localization posteriorly at L5-S1. Electronically signed by: Ashvin Bansal MD 07/23/2018 3:04 PM EDT
[2018-07-23 15:31] LABS: Hemoglobin A1c 5.1 % (4.3-6.0)
--- NOTE | 2018-07-23 16:13 | XR ---
EXAM DATE: 07/23/2018 4:10 PM EDT AGE/SEX: 38 years / Female INDICATIONS: Central line placement CLINICAL DATA: This is the patient's initial encounter. Patient reports that signs and symptoms have been present for 3 days and indicates a pain score of Nonresponsive. MEDICAL/SURGICAL HISTORY: . hx of endocarditis, hx of MRSA, Hep C, measles . right hip surgery for osteomyelitis COMPARISON: [facility] [place], CHEST 2V AP&LAT, 07/23/2018. . FINDINGS: A single AP view of the chest demonstrates the lungs to be symmetrically aerated without evidence of mass, infiltrate or effusion. There is a right-sided central line in place. There is no pneumothorax. The cardiomediastinal contours are unremarkable. Osseous structures are intact. CONCLUSION: 1. Right-sided central line in place and in good position. No pneumothorax. 2. No acute pulmonary infiltrates. Stable exam. Electronically signed by: Ashvin Bansal MD 07/23/2018 4:11 PM EDT
--- NOTE | 2018-07-23 16:37 | ECG ---
Date Performed: 07/23/2018 Time Performed: 09:02:11 PTAGE: 38 years EKG: Sinus rhythm INCOMPLETE RIGHT BUNDLE BRANCH BLOCK INFERIOR MYOCARDIAL INFARCTION When compared to previous tracin g, T waves are now noted in Leads AVF consistent with old inferior infarction. Clinical correlation i s recommended ABNORMAL ECG PREVIOUS TRACING : 08/18/2016 16.00.20 DOCTOR: Todd Morales Interpretating Date/Time 07/23/2018 16:35:47
--- NOTE | 2018-07-23 18:21 | P.CONID ---
History of Present Illness Service: ID Consult date: 07/23/18 Requesting Physician: Hank Molina Reason for Consult: epidural abscess Primary Care Provider: No Primary Care Physician Family Provider: No Primary Care Physician History of Present Illness: 38 yo female with h/o IVDU, last use about 2 mos ago per pt presents with worsening pain n the lower back and going down R LE Pain for few weeks, but worse in the last few days prior to presentation no fever or leukocytosis MRI showeed lumbar spine epidural abscess Pt was seen by neurosurgeon andn she went for laminectomy Pt co pain Review of Systems All other systems reviewed negative except as stated in HPI PMFSH - History History Provided By: Patient - Medical History Medical History: Medical History (Last Reviewed 07/23/18 @ 18:14 by Nayeli Barbour MD) Abscess of right hip Chronic back pain Degenerative disk disease Drug abuse Endocarditis Hip osteomyelitis, right Sciatica - Family History Family History: Family History (Last Reviewed 07/23/18 @ 18:14 by Nayeli Barbour MD) Father Lung cancer Mother Lung cancer Father CAD (coronary artery disease) Mother CAD (coronary artery disease) - Tobacco History Second Hand Smoke Exposure: No Tobacco Use In Past 30 Days: Yes Smoking Status: Current every day smoker Tobacco Type: Cigarettes - Alcohol History How Often Do You Have a Drink Containing Alcohol: Never - Substance Use History Substance History: Active Abuse - Substance Use Type Opiates Status: Active Route Used: By Mouth - Travel History Recent Travel in the [place] Within the Last 8 Weeks: No Recent Travel Out of the Country Within the Last 8 Weeks: No - Immunization History Tetanus Immunization: Unsure Hx Influenza Vaccine This Season: No Medications and Allergies Active Medications: Active Medications Acetaminophen (Tylenol) 650 mg PO Q4H PRN PRN Reason: TEMPERATURE > 101.5 F Al Hydrox/Mg Hydrox/Simethicone (Mag-Al Plus Susp Liq) 30 ml PO Q6H PRN PRN Reason: DYSPEPSIA Al Hydroxide/Mg Hydroxide (Milk Of Magnesia Liq) 30 ml PO Q12H PRN PRN Reason: Mild Constipation Albuterol (Albuterol Neb (Prn)) 2.5 mg NEB Q4HR NEB PRN PRN Reason: WHEEZING Bisacodyl (Dulcolax Supp) 10 mg RECTAL DAILY PRN PRN Reason: SEVERE CONSITIPATION Clonidine HCl (Catapres) 0.1 mg PO Q6H PRN PRN Reason: SYS BP GREATER THAN 170 MMHG Cyclobenzaprine HCl (Flexeril) 10 mg PO Q8H PRN PRN Reason: MUSCLE SPASM Last Admin: 07/23/18 09:35 Dose: 10 mg Sodium Chloride (Ns Inj) 1,000 mls @ 0 mls/hr IV.SIG BOLUS NURY Last Infusion: 07/23/18 09:07 Dose: Infused Cefepime HCl 2,000 mg/ Sodium (Chloride) 100 mls @ 200 mls/hr IV.SIG Q8H NURY Last Admin: 07/23/18 15:58 Dose: 200 mls/hr Sodium Chloride (Ns Inj) 1,000 mls @ 100 mls/hr IV.CONT .Q10H NURY Last Admin: 07/23/18 08:09 Dose: 100 mls/hr Potassium Chloride/Sodium Chloride (Ns + Kcl 20 Meq Inj) 1,000 mls @ 100 mls/ hr IV.CONT .Q10H NURY Last Infusion: 07/23/18 16:24 Dose: 100 mls/hr Vancomycin HCl 1,500 mg/ (Sodium Chloride) 515 mls @ 250 mls/hr IV.SIG Q12H NURY Lactulose (Lactulose Liq) 30 ml PO DAILY PRN PRN Reason: SEVERE CONSITIPATION Menthol ([place]) 1 lozenge BUCCAL UNSCH PRN PRN Reason: SORE THROAT Miscellaneous Information ([facility] Ordered Lab Info) 0 each OTHER ONCE ONE Stop: 07/25/18 05:46 Miscellaneous Information ([facility] Nursing Information) 0 each OTHER UNSCH PRN PRN Reason: SEE LABEL COMMENTS Stop: 07/24/18 15:19 Morphine Sulfate (Morphine Inj) 2 mg IV.PUSH Q2H PRN PRN Reason: breakthrough pain Last Admin: 07/23/18 09:36 Dose: 2 mg Naloxone HCl (Narcan Inj) 0.4 mg IV.PUSH UNSCH PRN PRN Reason: SEE LABEL COMMENTS Ondansetron HCl (Zofran Inj) 4 mg IV.PUSH Q6H PRN PRN Reason: NAUSEA OR VOMITING Oxycodone/Acetaminophen (Percocet 10/325 Mg) 1 tab PO Q6H PRN PRN Reason: PAIN SCALE 6 TO 10 Last Admin: 07/23/18 06:19 Dose: 1 tab Oxycodone/Acetaminophen (Percocet 5/325 Mg) 1 tab PO Q6H PRN PRN Reason: PAIN SCALE 3 TO 5 Pantoprazole Sodium (Protonix) 40 mg PO DAILY [facility] Pharmacy Profile Note (Vancomycin Consult Pharmacy) 1 each OTHER UNSCH PRN PRN Reason: Pharmacy to dose Promethazine HCl (Phenergan Inj) 25 mg IM Q4H PRN PRN Reason: NAUSEA OR VOMITING Senna/Docusate Sodium ([place]-Colace) 1 tab PO BID [facility] Sennosides (Senokot) 17.2 mg PO Q12H PRN PRN Reason: Moderate Constipation Sodium Chloride (Ns Flush) 2 ml IV.FLUSH BID [facility] Last Admin: 07/23/18 08:09 Dose: 2 ml Sodium Chloride (Ns Flush) 2 ml IV.FLUSH PRN PRN PRN Reason: FLUSH AFTER USING IV ACCESS Allergies Allergy/AdvReac Type Severity Reaction Status Date / Time *MDRO Multi-Drug Resistant AdvReac Unknown Uncoded 08/13/16 09:54 Organism Exam Vital signs: Vital Signs 07/23/18 00:47 07/23/18 00:59 07/23/18 06:08 Temperature 97.7 F Pulse Rate 140 H 117 H 87 Respiratory Rate 20 20 18 Blood Pressure 122/83 113/70 106/70 Pulse Oximetry 97 99 07/23/18 07:55 07/23/18 10:04 07/23/18 15:22 Temperature 99.3 F 97.9 F Pulse Rate 95 H 106 H Respiratory Rate 16 18 14 Blood Pressure 98/55 L 114/68 Pulse Oximetry 96 100 07/23/18 15:30 07/23/18 15:45 07/23/18 16:00 Temperature Pulse Rate 95 H 93 H 91 H Respiratory Rate 12 14 21 Blood Pressure 100/58 L 99/57 L 100/57 L Pulse Oximetry 100 100 100 07/23/18 16:15 Temperature 98.6 F Pulse Rate 92 H Respiratory Rate 19 Blood Pressure 101/57 L Pulse Oximetry 100 Intake & Output 07/22/18 07/23/18 07/23/18 18:59 06:59 18:59 Intake Total 1950 / 1949 Output Total 20 / 20 Balance 1929 / 193 Weight 65.771 kg Intake: IV 1450 / 1450 NS + KCl 20 mEq Inj 1,000 ML @ 100 / 100 100 mls/hr IV.CONT .Q10H NURY Rx #:[id number] Maxipime Inj 1,000 MG In NS Inj 100 / 100 100 ML @ 200 mls/hr IV.SIG ONCE ONE Rx#:[id number] NS Inj 1,000 ML @ Wide Open IV. 1000 / 1000 SIG BOLUS NURY Rx#:[id number] Vancomycin Inj 1,000 MG In NS 250 / 250 Inj 250 ML @ 250 mls/hr IV.SIG ONCE ONE Rx#:[id number] Oral 0 / 0 Anesthesia Amount 500 / 500 Output: Urine 0 / 0 Estimated Blood Loss 20 / 20 - Constitutional moderate distress, average body habitus - Routine HEENT Exam Head: Present: normocephalic, atraumatic Eye: Present: EOMI, PERRL ENT: Present: mucous membranes moist, oropharynx clear - Routine Neck Exam Present: supple, full ROM - Routine Respiratory Exam Present: CTA bilaterally Comments: good effort - Routine Cardiovascular Exam Present: RRR, S1, S2 Comments: no murmurs, rubs or gallops - Routine Abdominal Exam Present: soft, normoactive bowel sounds Comments: not tender not disteded no hepatomegaly or masses - Routine Extremities Exam Present: full ROM Comments: no cyanosis, no clubbing no edema - Routine Skin Exam Present: dry, warm Comments: no rash - Routine Neurological Exam Present: alert, oriented X3, CN II-XII intact, moving all extremities, vision grossly intact, hearing grossly intact, normal speech - Routine Psychiatric Exam Present: normal thought process, cooperative Comments: tearful Results - Labs CBC & Chem 7: 07/23/18 01:45 07/23/18 01:45 Labs: Laboratory Results - last 24 hr 07/23/18 07/23/18 07/23/18 01:45 01:45 01:45 WBC 8.0 RBC 4.24 Hgb 13.1 Hct 37.2 MCV 87.7 MCH 30.8 MCHC 35.2 RDW 13.2 Plt Count 222 MPV 8.4 Neut % (Auto) 77.2 H Lymph % (Auto) 12.9 [place] % (Auto) 8.4 H Eos % (Auto) 1.0 Baso % (Auto) 0.5 Neut # (Auto) 6.2 Lymph # (Auto) 1.0 [place] # (Auto) 0.7 Eos # (Auto) 0.1 Baso # (Auto) 0.0 WBC Differential . Differential Comment Auto diff final ESR 27 H Sodium 141 Potassium 3.6 Chloride 109 H Carbon Dioxide 23.5 Anion Gap 9 BUN 10 Creatinine 0.71 Estimated GFR Greater than 89 Random Glucose 94 Hemoglobin A1c Calcium 8.4 L Total Bilirubin 0.4 AST 9 L ALT 10 Alkaline Phosphatase 56 C-Reactive Protein 13.00 H Total Protein 7.8 Albumin 3.0 L TSH Free T4 07/23/18 07/23/18 07/23/18 01:45 01:45 01:45 WBC RBC Hgb Hct MCV MCH MCHC RDW Plt Count MPV Neut % (Auto) Lymph % (Auto) [place] % (Auto) Eos % (Auto) Baso % (Auto) Neut # (Auto) Lymph # (Auto) [place] # (Auto) Eos # (Auto) Baso # (Auto) WBC Differential Differential Comment ESR Sodium Potassium Chloride Carbon Dioxide Anion Gap BUN Creatinine Estimated GFR Random Glucose Hemoglobin A1c 5.1 Calcium Total Bilirubin AST ALT Alkaline Phosphatase C-Reactive Protein Total Protein Albumin TSH 3.480 Free T4 1.49 H - Imaging Impressions Chest X-Ray 07/23/18 00:00 CONCLUSION: No acute intrathoracic disease. Chest X-Ray 07/23/18 00:00 CONCLUSION: 1. Right-sided central line in place and in good position. No pneumothorax. 2. No acute pulmonary infiltrates. Stable exam. Lumbar Spine X-Ray 07/23/18 00:00 CONCLUSION: Localization posteriorly at L5-S1. Lumbar Spine MRI 07/23/18 02:39 CONCLUSION: 1. Right paracentral fluid collection posterior to the L5 vertebral body and with surrounding epidural enhancement within the L4/L5 and L5/S1 right lateral recesses and foramina. There is associated mass effect on the transiting right L5 and S1 nerve roots and also the exiting L4 and L5 nerve roots. The fluid collection is nonspecific; since there is a central to right paracentral extruded disc fragment at L4/L5, its possible this represents an epidural hematoma with reactive enhancement. An epidural abscess is possible in the proper clinical setting. The fluid collection itself measures approximately 9 x 16 x 23 mm. The surrounding epidural enhancement is much larger. 2. No evidence of osteomyelitis. 3. Mild and uncomplicated/typical-appearing degenerative changes at L2/L3 and L3/L4 as described. There is an associated focal annular fissure posteriorly of the L3/L4 disc. 4. Perivertebral soft tissues are within normal limits. 5. Chronic L5 pars defects. No associated spondylolisthesis. No acute fracture. Assessment and Plan - Plan Right L5-S1 epidural ascess sp hemilaminotomy with epidural abscess evacuation; IVDU cont cefepime vancomycin will follow blood and op clx anticipate 8 wks of IV abx
[2018-07-23] MEDS: Vancomycin Inj 1,500 MG in Sodium Chlor 0.9% Inj 500 ML IV.SIG SCH (21:42)
[2018-07-23] MEDS: Senna/Docusate Sodium 8.6/50 MG Tablet PO SCH (22:03)
[2018-07-24] MEDS: Sod Chloride 0.9% Inj 1,000 ML IV.CONT SCH (01:38)
[2018-07-24] MEDS: oxyCODONE/Acetaminophen 10/325 Tablet PO PRN ×5 (03:43→22:35)
[2018-07-24] MEDS: Morphine Sulfate Inj 2 MG/ML Vial IV.PUSH PRN ×8 (04:35→23:57)
[2018-07-24] MEDS: Vancomycin Inj 1,500 MG in Sodium Chlor 0.9% Inj 500 ML IV.SIG SCH (06:21)
[2018-07-24 07:26] LABS: Baso % (Auto) 0.6 % (0.0-2.0); Eos # (Auto) 0.1 th/mm3 (0.0-0.4); Eos % (Auto) 1.5 % (0.0-4.0); Hematocrit 37.3 % (35.0-46.0); Hemoglobin 12.3 gm/dL (11.6-15.3); Lymph # (Auto) 1.1 th/mm3 (1.0-4.8); Lymph % (Auto) 16.7 % (9.0-44.0); Mean Corpuscular Hemoglobin 29.6 pg (27.0-34.0); Mean Corpuscular Volume 89.7 fL (80.0-100.0); Mean Platelet Volume 8.7 fL (7.0-11.0); Mono # (Auto) 0.9 th/mm3 (0.0-0.9); Mono % (Auto) 13.3 % (0.0-8.0); Neut # (Auto) 4.7 th/mm3 (1.8-7.7); Neut % (Auto) 67.9 % (16.0-70.0); Platelet Count 235 th/mm3 (150-450); Red Blood Count 4.16 mil/mm3 (4.00-5.30); Red Cell Distribution Width 13.3 % (11.6-17.2); White Blood Count 6.9 th/mm3 (4.0-11.0)
[2018-07-24 07:34] LABS: Activated Partial Thrombo Time 31.7 sec (24.3-30.1); INR 1.2 Ratio; Prothrombin Time 11.7 sec (9.8-11.6)
[2018-07-24 08:16] LABS: Alanine Aminotransferase 11 U/L (10-53); Albumin 2.2 g/dL (3.4-5.0); Alkaline Phosphatase 51 U/L (45-117); Anion Gap 10 meq/L (5-15); Aspartate Aminotransferase 16 U/L (15-37); Blood Urea Nitrogen 6 mg/dL (7-18); Calcium 8.2 mg/dL (8.5-10.1); Carbon Dioxide 23.3 meq/L (21.0-32.0); Chloride 108 meq/L (98-107); Glomerular Filtration Rate Greater Than 89 mL/min (>89); Glucose,Random 94 mg/dL (74-106); Potassium 4.1 meq/L (3.5-5.1); Sodium 141 meq/L (136-145); Total Protein 6.5 g/dL (6.4-8.2)
[2018-07-24 08:24] LABS: Hepatitits B Surface Antigen Nonreactive (Nonreactive)
[2018-07-24] MEDS: Senna/Docusate Sodium 8.6/50 MG Tablet PO SCH ×2 (08:24→21:27)
[2018-07-24 08:49] LABS: Hepatitis A IgM Antibody Nonreactive (Nonreactive)
--- NOTE | 2018-07-24 09:34 | P.PNIM ---
Subjective Interval history: f/u; epidural abscess in no acute distress. complaining of lower back pain. no fever. Physical Exam Vital signs: Vital Signs 07/23/18 10:04 07/23/18 15:22 07/23/18 15:30 Temperature 97.9 F Pulse Rate 106 H 95 H Respiratory Rate 18 14 12 Blood Pressure 114/68 100/58 L Pulse Oximetry 100 100 07/23/18 15:45 07/23/18 16:00 07/23/18 16:15 Temperature 98.6 F Pulse Rate 93 H 91 H 92 H Respiratory Rate 14 21 19 Blood Pressure 99/57 L 100/57 L 101/57 L Pulse Oximetry 100 100 100 07/23/18 20:00 07/24/18 00:00 07/24/18 04:00 Temperature 98.9 F 98.1 F 98.4 F Pulse Rate 105 H 89 89 Respiratory Rate 18 18 18 Blood Pressure 119/73 104/57 L 94/54 L Pulse Oximetry 100 97 97 07/24/18 08:00 07/24/18 08:25 Temperature 98.7 F Pulse Rate 84 Respiratory Rate 17 18 Blood Pressure 94/57 L Pulse Oximetry 97 Intake & Output 07/23/18 07/24/18 07/24/18 18:59 06:59 18:59 Intake Total 1950 / 1950 2300 / 2300 Output Total 20 / 20 Balance 1930 / 1930 2300 / 2300 Weight 65.771 kg Intake: IV 1450 / 1450 2300 / 2300 NS + KCl 20 mEq Inj 1,000 ML @ 100 / 100 1000 / 1000 100 mls/hr IV.CONT .Q10H NURY Rx #:[id number] NS Inj 1,000 ML @ 100 mls/hr IV 1000 / 1000 .CONT .Q10H NURY Rx#:[id number] Maxipime Inj 1,000 MG In NS Inj 100 / 100 100 ML @ 200 mls/hr IV.SIG ONCE ONE Rx#:[id number] Maxipime Inj 2,000 MG In NS Inj 300 / 300 100 ML @ 200 mls/hr IV.SIG Q8H NURY Rx#:[id number] NS Inj 1,000 ML @ Wide Open IV. 1000 / 1000 SIG BOLUS NURY Rx#:[id number] Vancomycin Inj 1,000 MG In NS 250 / 250 Inj 250 ML @ 250 mls/hr IV.SIG ONCE ONE Rx#:[id number] Oral 0 / 0 Anesthesia Amount 500 / 500 Output: Urine 0 / 0 Estimated Blood Loss 20 / 20 Other: # Voids 3 - Constitutional no acute distress - Routine Respiratory Exam Present: CTA bilaterally - Routine Cardiovascular Exam Present: RRR - Routine Abdominal Exam Present: soft - Routine Extremities Exam Comments: no pedal edema. - Routine Neurological Exam Present: alert, oriented X3 Results - Labs CBC & Chem 7: 07/24/18 06:19 07/24/18 06:19 Laboratory Results - last 24 hr 07/23/18 07/23/18 07/23/18 01:45 01:45 01:45 WBC RBC Hgb Hct MCV MCH MCHC RDW Plt Count MPV Neut % (Auto) Lymph % (Auto) [place] % (Auto) Eos % (Auto) Baso % (Auto) Neut # (Auto) Lymph # (Auto) [place] # (Auto) Eos # (Auto) Baso # (Auto) WBC Differential Differential Comment PT INR APTT Sodium Potassium Chloride Carbon Dioxide Anion Gap BUN Creatinine Estimated GFR Random Glucose Hemoglobin A1c 5.1 Calcium Phosphorus Magnesium Total Bilirubin AST ALT Alkaline Phosphatase Total Protein Albumin TSH 3.480 Free T4 1.49 H Hepatitis A IgM Ab Hep Bs Antigen Hep B Core IgM Ab Hep C IgG Ab 07/24/18 07/24/18 07/24/18 06:19 06:19 06:19 WBC 6.9 RBC 4.16 Hgb 12.3 Hct 37.3 MCV 89.7 MCH 29.6 MCHC 33.0 RDW 13.3 Plt Count 235 MPV 8.7 Neut % (Auto) 67.9 Lymph % (Auto) 16.7 [place] % (Auto) 13.3 H Eos % (Auto) 1.5 Baso % (Auto) 0.6 Neut # (Auto) 4.7 Lymph # (Auto) 1.1 [place] # (Auto) 0.9 Eos # (Auto) 0.1 Baso # (Auto) 0.0 WBC Differential . Differential Comment Auto diff final PT 11.7 H INR 1.2 APTT 31.7 H Sodium Potassium Chloride Carbon Dioxide Anion Gap BUN Creatinine Estimated GFR Random Glucose Hemoglobin A1c Calcium Phosphorus Magnesium Total Bilirubin AST ALT Alkaline Phosphatase Total Protein Albumin TSH Free T4 Hepatitis A IgM Ab Nonreactive Hep Bs Antigen Nonreactive Hep B Core IgM Ab Nonreactive Hep C IgG Ab Reactive H 07/24/18 06:19 WBC RBC Hgb Hct MCV MCH MCHC RDW Plt Count MPV Neut % (Auto) Lymph % (Auto) [place] % (Auto) Eos % (Auto) Baso % (Auto) Neut # (Auto) Lymph # (Auto) [place] # (Auto) Eos # (Auto) Baso # (Auto) WBC Differential Differential Comment PT INR APTT Sodium 141 Potassium 4.1 Chloride 108 H Carbon Dioxide 23.3 Anion Gap 10 BUN 6 L Creatinine 0.70 Estimated GFR Greater than 89 Random Glucose 94 Hemoglobin A1c Calcium 8.2 L Phosphorus 3.0 Magnesium 2.0 Total Bilirubin 0.3 AST 16 ALT 11 Alkaline Phosphatase 51 Total Protein 6.5 D Albumin 2.2 L D TSH Free T4 Hepatitis A IgM Ab Hep Bs Antigen Hep B Core IgM Ab Hep C IgG Ab Microbiology 07/23/18 14:16 Abscess - Other Gram Stain - Final 07/23/18 04:50 Blood - Peripheral Anaerobic Blood Culture - Preliminary gram positive cocci - Imaging Impressions Chest X-Ray 07/23/18 00:00 CONCLUSION: No acute intrathoracic disease. Chest X-Ray 07/23/18 00:00 CONCLUSION: 1. Right-sided central line in place and in good position. No pneumothorax. 2. No acute pulmonary infiltrates. Stable exam. Lumbar Spine X-Ray 07/23/18 00:00 CONCLUSION: Localization posteriorly at L5-S1. Assessment and Plan - Plan Epidural abscess. Suspected bacterial infection Suspected sepsis. s/p L5-S1 laminectomy with epidural abscess evacuation and subsequent parenteral antibiotics for 6-8 weeks as per the discretion of infectious disease. continue with Cefepime and Vancomycin for now- pending the cultures. continue with pain control. History of IV drug use. Cessation counseling provided. Avoid IV narcotics. hepatitis- f/u as outpatient. Discharge Planning: when cleared by ID and neurosurgery.
--- NOTE | 2018-07-24 10:10 | P.PNNS ---
Subjective Interval history: Pt awake and alert. Complains of severe low back pain and right posterior thigh and lateral calf pain. She states she has chronic numbness in right anterior thigh from previous surgery. Physical Exam Vital signs: Vital Signs 07/23/18 15:22 07/23/18 15:30 07/23/18 15:45 Temperature 97.9 F Pulse Rate 106 H 95 H 93 H Respiratory Rate 14 12 14 Blood Pressure 114/68 100/58 L 99/57 L Pulse Oximetry 100 100 100 07/23/18 16:00 07/23/18 16:15 07/23/18 20:00 Temperature 98.6 F 98.9 F Pulse Rate 91 H 92 H 105 H Respiratory Rate 21 19 18 Blood Pressure 100/57 L 101/57 L 119/73 Pulse Oximetry 100 100 100 07/24/18 00:00 07/24/18 04:00 07/24/18 08:00 Temperature 98.1 F 98.4 F 98.7 F Pulse Rate 89 89 84 Respiratory Rate 18 18 17 Blood Pressure 104/57 L 94/54 L 94/57 L Pulse Oximetry 97 97 97 07/24/18 08:25 Temperature Pulse Rate Respiratory Rate 18 Blood Pressure Pulse Oximetry Intake & Output 07/23/18 07/24/18 07/24/18 18:59 06:59 18:59 Intake Total 1950 / 1950 2300 / 2300 Output Total 20 / 20 Balance 1930 / 1930 2300 / 2300 Weight 65.771 kg Intake: IV 1450 / 1450 2300 / 2300 NS + KCl 20 mEq Inj 1,000 ML @ 100 / 100 1000 / 1000 100 mls/hr IV.CONT .Q10H NURY Rx #:[id number] NS Inj 1,000 ML @ 100 mls/hr IV 1000 / 1000 .CONT .Q10H NURY Rx#:[id number] Maxipime Inj 1,000 MG In NS Inj 100 / 100 100 ML @ 200 mls/hr IV.SIG ONCE ONE Rx#:[id number] Maxipime Inj 2,000 MG In NS Inj 300 / 300 100 ML @ 200 mls/hr IV.SIG Q8H NURY Rx#:[id number] NS Inj 1,000 ML @ Wide Open IV. 1000 / 1000 SIG BOLUS NURY Rx#:[id number] Vancomycin Inj 1,000 MG In NS 250 / 250 Inj 250 ML @ 250 mls/hr IV.SIG ONCE ONE Rx#:[id number] Oral 0 / 0 Anesthesia Amount 500 / 500 Output: Urine 0 / 0 Estimated Blood Loss 20 / 20 Other: # Voids 3 - Constitutional average body habitus, cooperative, agitated (From pain.) - Routine HEENT Exam Head: Present: normocephalic, atraumatic Eye: Present: PERRL ENT: Present: oropharynx clear - Routine Neck Exam Present: trachea midline - Routine Respiratory Exam Present: CTA bilaterally. Absent: respiratory distress, rhonchi, wheezes - Routine Cardiovascular Exam Present: RRR, S1, S2. Absent: murmur - Routine Abdominal Exam Present: soft, normoactive bowel sounds. Absent: tenderness, distended - Routine Skin Exam Present: wounds (Pt log rolled and bandage changed. Steristrips intact. No erythema or active drainage.). Absent: cyanosis, erythema - Routine Neurological Exam Present: alert, sensory deficit (right antior thigh numbness pt states is chronci from previous surgery.). Absent: motor deficit Assessment and Plan - Assessment (1) Epidural abscess Code(s): G06.2 - Extradural and subdural abscess, unspecified Status: Acute (2) Abscess in epidural space of lumbar spine Code(s): G06.1 - Intraspinal abscess and granuloma Status: Acute (3) No history of previous surgery Status: Acute - Plan A: 38-year-old lady with a 6 week history of low back pain with subsequent radiation to the right leg with intractable pain. She has low-grade fever with elevated sed rate and C-reactive protein an MRI scan consistent with a L5-S1 epidural abscess eccentric to the right side. She has a history of IV drug abuse with Dilaudid more recently in May 2018 was last time she reportedly injected a few times. She has a history of endocarditis 2 as well as a right hip abscess and osteomyelitis treated several years ago. I recommended a L5-S1 laminectomy with epidural abscess evacuation and subsequent parenteral antibiotics for 6-8 weeks as per the discretion of infectious disease. She is also counseled on cessation of IV drug abuse otherwise any treatment efforts would like to be futile due to risk for recurrent infections with risk of paralysis/sepsis/. Pain management is also going to be challenging given her history of drug abuse and she understands that I do not participate in chronic pain management. s/p L5/S1 laminectomy with epidural abscess evacuation on 07/23/18. Continue with antibiotics. Continue with PT.
--- NOTE | 2018-07-24 13:37 | ECHRPT ---
Indication: SEPSIS CONCLUSIONS The left ventricular systolic function is normal with an estimated ejection fraction in the range of 60-65%. No regional wall motion abnormalities are present. Trace mitral valve regurgitation. There is trace tricuspid valve regurgitation. BP: / HR: Rhythm: Sinus MEASUREMENTS (Male / Female) Normal Values Technical Quality:Good 2D ECHO LV Diastolic Diameter PLAX 4.5 cm 4.2 - 5.9 / 3.9 - 5.3 cm LV Systolic Diameter PLAX 3.0 cm IVS Diastolic Thickness 1.1 cm 0.6 - 1.0 / 0.6 - 0.9 cm LVPW Diastolic Thickness 1.1 cm 0.6 - 1.0 / 0.6 - 0.9 cm LV Relative Wall Thickness 0.5 RV Internal Dim ED PLAX 2.8 cm LVOT Diameter 1.6 cm LA Systolic Diameter LX 3.0 cm 3.0 - 4.0 / 2.7 - 3.8 cm LV Ejection Fraction MOD 4C 65.1 % LV Ejection Fraction 4C AL 66.3 % M-MODE Aortic Root Diameter MM 2.1 cm LA Systolic Diameter MM 3.4 cm LA Ao Ratio MM 1.6 AV Cusp Separation MM 2.2 cm DOPPLER AV Peak Velocity 147.0 cm/s AV Peak Gradient 8.6 mmHg LVOT Peak Velocity 121.0 cm/s LVOT Peak Gradient 5.9 mmHg AV Area Cont Eq pk 1.7 cm MV Area PHT 5.8 cm Mitral E Point Velocity 77.0 cm/s Mitral A Point Velocity 49.4 cm/s Mitral E to A Ratio 1.6 LV E' Lateral Velocity 17.6 cm/s Mitral E to LV E' Lateral Ratio 4.4 LV E' Septal Velocity 10.3 cm/s Mitral E to LV E' Septal Ratio 7.5 TR Peak Velocity 232.0 cm/s TR Peak Gradient 21.5 mmHg Right Atrial Pressure 10.0 mmHg Pulmonary Artery Systolic Pressu 31.5 mmHg Right Ventricular Systolic Press 31.5 mmHg PV Peak Velocity 92.3 cm/s PV Peak Gradient 3.4 mmHg FINDINGS LEFT VENTRICLE The left ventricular systolic function is normal with an estimated ejection fraction in the range of 60-65%. Normal left ventricular size. Wall thickness is normal. No regional wall motion abnormalities are present. RIGHT VENTRICLE Normal right ventricular size and systolic function. LEFT ATRIUM The left atrial size is normal. RIGHT ATRIUM The right atrial size is normal. ATRIAL SEPTUM Normal atrial septal thickness without atrial level shunting by limited color doppler interrogation. AORTA The aortic root and proximal ascending aorta are normal in size on limited imaging. MITRAL VALVE Structurally normal mitral valve. Trace mitral valve regurgitation. No mitral valve stenosis. AORTIC VALVE Trileaflet aortic valve. No aortic valve stenosis or regurgitation. TRICUSPID VALVE Structurally normal tricuspid valve. There is trace tricuspid valve regurgitation. The estimated pulmonary arterial pressure is 31.5 mmHg. PULMONARY VALVE No pulmonary valve regurgitation or stenosis. VESSELS The inferior vena cava is normal in size. PERICARDIUM No pericardial effusion. Nash Youngblood DO (Electronically Signed) Final Date:24 July 2018 13:36
[2018-07-25] MEDS: Morphine Sulfate Inj 2 MG/ML Vial IV.PUSH PRN ×7 (05:03→21:52)
[2018-07-25] MEDS ORDERED: Pharmacy Ordered Lab Info OTHER ONE (05:45)
[2018-07-25] MEDS: oxyCODONE/Acetaminophen 10/325 Tablet PO PRN ×5 (06:13→23:57)
[2018-07-25 06:48] LABS: Glomerular Filtration Rate Greater Than 89 mL/min (>89)
[2018-07-25 06:50] LABS: Vancomycin,Trough 2.4 mcg/mL (5.0-10.0)
[2018-07-25] MEDS: Senna/Docusate Sodium 8.6/50 MG Tablet PO SCH ×2 (08:23→20:06)
--- NOTE | 2018-07-25 09:39 | P.PNNS ---
Subjective Interval history: Nurses did not report any major acute issues overnight. They note that she does frequently complain of pain. When I entered her room this morning, she was tearful and reported severe back pain, and reported having been asking for her nurse for several hours. Nurses state that they have been checking on her routinely. I stepped out of her room for a few minutes to find her nurse, and when I came back, she was sleeping. Physical Exam Vital signs: Vital Signs 07/24/18 11:22 07/24/18 12:00 07/24/18 13:51 Temperature 99.4 F Pulse Rate 95 H Respiratory Rate 16 17 18 Blood Pressure 105/56 L Pulse Oximetry 97 07/24/18 16:00 07/24/18 18:20 07/24/18 18:50 Temperature 98.4 F Pulse Rate 86 Respiratory Rate 17 18 18 Blood Pressure 106/59 L Pulse Oximetry 97 07/24/18 20:00 07/25/18 00:00 07/25/18 02:21 Temperature 98.4 F 98 F Pulse Rate 88 76 Respiratory Rate 17 16 Blood Pressure 106/57 L 93/55 L 114/71 Pulse Oximetry 97 97 07/25/18 04:00 Temperature 98 F Pulse Rate 72 Respiratory Rate 16 Blood Pressure 109/68 Pulse Oximetry 96 Intake & Output 07/24/18 07/25/18 07/25/18 18:59 06:59 18:59 Intake Total 200 / 200 1300 / 1300 Balance 200 / 200 1300 / 1300 Weight 65.8 kg Intake: IV 200 / 200 1300 / 1300 NS + KCl 20 mEq Inj 1,000 ML @ 1000 / 1000 100 mls/hr IV.CONT .Q10H [facility] Rx #:[id number] Prostaphlin Inj 2 GM In NS Inj 200 / 200 300 / 300 100 ML @ 200 mls/hr IV.SIG Q4H [facility] Rx#:[id number] - Routine Neurological Exam Awake, alert, conversant. Normal strength 4. She is able to lift her legs off the bed, push herself up in bed, etc. Reports significant back pain, reports some pain in right thigh but says this is stable from preop. Assessment and Plan - Plan A: 38-year-old lady with a 6 week history of low back pain with subsequent radiation to the right leg with intractable pain. She has low-grade fever with elevated sed rate and C-reactive protein an MRI scan consistent with a L5-S1 epidural abscess eccentric to the right side. She has a history of IV drug abuse with Dilaudid more recently in May 2018 was last time she reportedly injected a few times. She has a history of endocarditis 2 as well as a right hip abscess and osteomyelitis treated several years ago. I recommended a L5-S1 laminectomy with epidural abscess evacuation and subsequent parenteral antibiotics for 6-8 weeks as per the discretion of infectious disease. She is also counseled on cessation of IV drug abuse otherwise any treatment efforts would like to be futile due to risk for recurrent infections with risk of paralysis/sepsis/. Pain management is also going to be challenging given her history of drug abuse and she understands that I do not participate in chronic pain management. s/p L5/S1 laminectomy with epidural abscess evacuation on 07/23/18. Continue with antibiotics per infectious disease service Continue with PT. No changes to current management
--- NOTE | 2018-07-25 11:03 | P.PNIM ---
Subjective Interval history: in no acute distress. has some back pain. no fever. Physical Exam Vital signs: Vital Signs 07/24/18 11:22 07/24/18 12:00 07/24/18 13:51 Temperature 99.4 F Pulse Rate 95 H Respiratory Rate 16 17 18 Blood Pressure 105/56 L Pulse Oximetry 97 07/24/18 16:00 07/24/18 18:20 07/24/18 18:50 Temperature 98.4 F Pulse Rate 86 Respiratory Rate 17 18 18 Blood Pressure 106/59 L Pulse Oximetry 97 07/24/18 20:00 07/25/18 00:00 07/25/18 02:21 Temperature 98.4 F 98 F Pulse Rate 88 76 Respiratory Rate 17 16 Blood Pressure 106/57 L 93/55 L 114/71 Pulse Oximetry 97 97 07/25/18 04:00 07/25/18 08:00 07/25/18 09:46 Temperature 98 F 98.2 F Pulse Rate 72 92 H Respiratory Rate 16 16 16 Blood Pressure 109/68 118/58 L Pulse Oximetry 96 100 Intake & Output 07/24/18 07/25/18 07/25/18 18:59 06:59 18:59 Intake Total 200 / 200 1300 / 1300 100 / 100 Balance 200 / 200 1300 / 1300 100 / 100 Weight 65.8 kg Intake: IV 200 / 200 1300 / 1300 100 / 100 NS + KCl 20 mEq Inj 1,000 ML @ 1000 / 1000 100 mls/hr IV.CONT .Q10H [facility] Rx #:[id number] Prostaphlin Inj 2 GM In NS Inj 200 / 200 300 / 300 100 / 100 100 ML @ 200 mls/hr IV.SIG Q4H [facility] Rx#:[id number] Other: Date of Last Bowel Movement 07/23/18 - Constitutional no acute distress - Routine Respiratory Exam Present: CTA bilaterally - Routine Cardiovascular Exam Present: RRR - Routine Abdominal Exam Present: soft - Routine Extremities Exam Comments: no pedal edema. - Routine Neurological Exam Present: alert, oriented X3 Results - Labs CBC & Chem 7: 07/24/18 06:19 07/25/18 05:50 Laboratory Results - last 24 hr 07/25/18 05:50 Creatinine 0.70 Estimated GFR Greater than 89 Vancomycin Trough 2.4 L Microbiology 07/23/18 14:16 Abscess - Other Gram Stain - Final 07/23/18 14:16 Abscess - Other Wound Culture - Preliminary Staphylococcus aureus 07/23/18 04:40 Blood - Peripheral Aerobic Blood Culture - Preliminary Staphylococcus aureus 07/23/18 04:40 Blood - Peripheral Anaerobic Blood Culture - Preliminary No growth in 1 day 07/23/18 04:50 Blood - Peripheral Aerobic Blood Culture - Preliminary No growth in 1 day 07/23/18 04:50 Blood - Peripheral Anaerobic Blood Culture - Preliminary Staphylococcus aureus 07/23/18 14:16 Abscess - Other Gram Stain - Final 07/23/18 14:16 Abscess - Other Wound Culture - Preliminary Staphylococcus aureus 07/23/18 14:16 Abscess - Other Acid Fast Bacilli Smear - Final No acid fast bacilli seen 07/23/18 14:16 Abscess - Other Acid Fast Bacilli Smear - Final No acid fast bacilli seen 07/23/18 14:16 Abscess - Other Fungal Smear - Final No fungal elements seen 07/23/18 14:16 Abscess - Other Fungal Smear - Final No fungal elements seen Assessment and Plan - Plan Epidural abscess. Suspected bacterial infection staph bacteremia s/p L5-S1 laminectomy with epidural abscess evacuation and subsequent parenteral antibiotics for 6-8 weeks as per the discretion of infectious disease. echo with EF 60% and no vegetation. continue with Cefepime and Vancomycin for now- pending the cultures. will repeat the blood cultures. continue with pain control. History of IV drug use. Cessation counseling provided. Avoid IV narcotics. hepatitis- f/u as outpatient. Discharge Planning: when cleared by ID and neurosurgery.
--- NOTE | 2018-07-25 17:06 | P.PNID ---
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) POSITIVE - 08/13/16 Objective Vital Signs 07/24/18 18:20 07/24/18 18:50 07/24/18 20:00 Temperature 98.4 F Pulse Rate 88 Respiratory Rate 18 18 17 Blood Pressure 106/57 L Pulse Oximetry 97 07/25/18 00:00 07/25/18 02:21 07/25/18 04:00 Temperature 98 F 98 F Pulse Rate 76 72 Respiratory Rate 16 16 Blood Pressure 93/55 L 114/71 109/68 Pulse Oximetry 97 96 07/25/18 08:00 07/25/18 09:46 07/25/18 12:00 Temperature 98.2 F 98.6 F Pulse Rate 92 H 83 Respiratory Rate 16 16 17 Blood Pressure 118/58 L 119/70 Pulse Oximetry 100 96 07/25/18 14:27 Temperature Pulse Rate Respiratory Rate 14 Blood Pressure Pulse Oximetry Intake & Output 07/24/18 07/25/18 07/25/18 18:59 06:59 18:59 Intake Total 200 / 200 1300 / 1300 200 / 200 Balance 200 / 200 1300 / 1300 200 / 200 Weight 65.8 kg Intake: IV 200 / 200 1300 / 1300 200 / 200 NS + KCl 20 mEq Inj 1,000 ML @ 1000 / 1000 100 mls/hr IV.CONT .Q10H [facility] Rx #:[id number] Prostaphlin Inj 2 GM In NS Inj 200 / 200 300 / 300 200 / 200 100 ML @ 200 mls/hr IV.SIG Q4H [facility] Rx#:[id number] Other: Date of Last Bowel Movement 07/23/18 07/25/18 13:00 Blood - Peripheral Aerobic Blood Culture - Pending 07/25/18 13:00 Blood - Peripheral Anaerobic Blood Culture - Pending 07/25/18 13:08 Blood - Peripheral Aerobic Blood Culture - Pending 07/25/18 13:08 Blood - Peripheral Anaerobic Blood Culture - Pending 07/23/18 14:16 Abscess - Other Gram Stain - Final 07/23/18 14:16 Abscess - Other Wound Culture - Final Staphylococcus aureus 07/23/18 14:16 Abscess - Other Gram Stain - Final 07/23/18 14:16 Abscess - Other Wound Culture - Final Staphylococcus aureus 07/23/18 04:40 Blood - Peripheral Aerobic Blood Culture - Preliminary Staphylococcus aureus 07/23/18 04:40 Blood - Peripheral Anaerobic Blood Culture - Preliminary No growth in 2 days 07/23/18 04:50 Blood - Peripheral Aerobic Blood Culture - Preliminary No growth in 2 days 07/23/18 04:50 Blood - Peripheral Anaerobic Blood Culture - Preliminary Staphylococcus aureus 07/23/18 14:16 Abscess - Other Acid Fast Bacilli Smear - Final No acid fast bacilli seen 07/23/18 14:16 Abscess - Other Mycobacterial Culture - Pending 07/23/18 14:16 Abscess - Other Acid Fast Bacilli Smear - Final No acid fast bacilli seen 07/23/18 14:16 Abscess - Other Mycobacterial Culture - Pending 07/23/18 14:16 Abscess - Other Fungal Smear - Final No fungal elements seen 07/23/18 14:16 Abscess - Other Fungal Culture - Pending 07/23/18 14:16 Abscess - Other Fungal Smear - Final No fungal elements seen 07/23/18 14:16 Abscess - Other Fungal Culture - Pending Lab - Hematology Results 07/24/18 06:19 WBC 6.9 RBC 4.16 Hgb 12.3 Hct 37.3 MCV 89.7 MCH 29.6 MCHC 33.0 RDW 13.3 Plt Count 235 MPV 8.7 Neut % (Auto) 67.9 Lymph % (Auto) 16.7 [place] % (Auto) 13.3 H Eos % (Auto) 1.5 Baso % (Auto) 0.6 Neut # (Auto) 4.7 Lymph # (Auto) 1.1 [place] # (Auto) 0.9 Eos # (Auto) 0.1 Baso # (Auto) 0.0 WBC Differential . Differential Comment Auto diff final Lab - Chemistry Results 07/24/18 07/25/18 06:19 05:50 Sodium 141 Potassium 4.1 Chloride 108 H Carbon Dioxide 23.3 Anion Gap 10 BUN 6 L Creatinine 0.70 0.70 Estimated GFR Greater than 89 Greater than 89 Random Glucose 94 Calcium 8.2 L Phosphorus 3.0 Magnesium 2.0 Total Bilirubin 0.3 AST 16 ALT 11 Alkaline Phosphatase 51 Total Protein 6.5 D Albumin 2.2 L D Imaging: ITS Impressions Chest X-Ray 07/23/18 00:00 CONCLUSION: 1. Right-sided central line in place and in good position. No pneumothorax. 2. No acute pulmonary infiltrates. Stable exam. Lumbar Spine X-Ray 07/23/18 00:00 CONCLUSION: Localization posteriorly at L5-S1. Lumbar Spine MRI 07/23/18 02:39 CONCLUSION: 1. Right paracentral fluid collection posterior to the L5 vertebral body and with surrounding epidural enhancement within the L4/L5 and L5/S1 right lateral recesses and foramina. There is associated mass effect on the transiting right L5 and S1 nerve roots and also the exiting L4 and L5 nerve roots. The fluid collection is nonspecific; since there is a central to right paracentral extruded disc fragment at L4/L5, its possible this represents an epidural hematoma with reactive enhancement. An epidural abscess is possible in the proper clinical setting. The fluid collection itself measures approximately 9 x 16 x 23 mm. The surrounding epidural enhancement is much larger. 2. No evidence of osteomyelitis. 3. Mild and uncomplicated/typical-appearing degenerative changes at L2/L3 and L3/L4 as described. There is an associated focal annular fissure posteriorly of the L3/L4 disc. 4. Perivertebral soft tissues are within normal limits. 5. Chronic L5 pars defects. No associated spondylolisthesis. No acute fracture. Physical Exam: GENERAL: NAD SKIN: Warm and dry. HEAD: Atraumatic. Normocephalic. EYES: Pupils equal and round. No scleral icterus. No injection or drainage. ENT: No nasal bleeding or discharge. Mucous membranes pink and moist. NECK: Trachea midline. No JVD. CARDIOVASCULAR: Regular rate and rhythm. No murmrus RESPIRATORY: No accessory muscle use. Clear to auscultation. Breath sounds equal bilaterally. GASTROINTESTINAL: Abdomen soft, non-tender, nondistended. Hepatic and splenic margins not palpable. MUSCULOSKELETAL: Extremities without clubbing, cyanosis, or edema. No obvious deformities. BACK: dressing in place withi minimal serosag staining NEUROLOGICAL: Awake and alert. No obvious cranial nerve deficits. Motor grossly within normal limits. Five out of 5 muscle strength in the arms and legs. Normal speech. PSYCHIATRIC: Appropriate mood and affect; insight and judgment normal. Assessment and Plan - Plan Right L5-S1 epidural abscess, MSSA sp hemilaminotomy with epidural abscess evacuation; IVDU Bacteremia, high grade, MSSA 2 D echonegarive fu repeat BC If repeat BC + will need MELIA anticipate 8 wks of IV abx longer treatment if clinical failure or persistent high ESR/CRP PICC line can be placed with 3 days of negative blood clx Pts parents will monitor pt at home dw father @ b/s dw pt
[2018-07-26] MEDS: Morphine Sulfate Inj 2 MG/ML Vial IV.PUSH PRN ×7 (00:46→22:13)
[2018-07-26] MEDS: oxyCODONE/Acetaminophen 10/325 Tablet PO PRN ×5 (04:14→21:19)
[2018-07-26] MEDS: Senna/Docusate Sodium 8.6/50 MG Tablet PO SCH ×2 (08:49→21:19)
--- NOTE | 2018-07-26 09:37 | P.PNNS ---
Subjective Interval history: No issues overnight. Says her pain is somewhat better this morning. She has been walking around the hospital. Denies any new neurologic complaints. Physical Exam Vital signs: Vital Signs 07/25/18 09:46 07/25/18 12:00 07/25/18 14:27 Temperature 98.6 F Pulse Rate 83 Respiratory Rate 16 17 14 Blood Pressure 119/70 Pulse Oximetry 96 07/25/18 16:00 07/25/18 17:05 07/25/18 20:00 Temperature 99.0 F 99.8 F H Pulse Rate 84 105 H Respiratory Rate 16 14 19 Blood Pressure 111/62 110/74 Pulse Oximetry 98 98 07/26/18 00:00 07/26/18 04:00 Temperature 98.8 F 98.5 F Pulse Rate 90 92 H Respiratory Rate 17 17 Blood Pressure 99/60 L 107/73 Pulse Oximetry 98 98 Intake & Output 07/25/18 07/26/18 07/26/18 18:59 06:59 18:59 Intake Total 800 / 800 300 / 300 100 / 100 Balance 800 / 800 300 / 300 100 / 100 Weight 65.9 kg Intake: IV 300 / 300 300 / 300 100 / 100 Prostaphlin Inj 2 GM In NS Inj 300 / 300 300 / 300 100 / 100 100 ML @ 200 mls/hr IV.SIG Q4H [facility] Rx#:[id number] Oral 500 / 500 Other: # Voids 5 Date of Last Bowel Movement 07/23/18 # Bowel Movements 0 - Routine Neurological Exam Alert and conversant. Follows commands 4, normal strength throughout. Assessment and Plan - Plan A: 38-year-old lady with a 6 week history of low back pain with subsequent radiation to the right leg with intractable pain. She has low-grade fever with elevated sed rate and C-reactive protein an MRI scan consistent with a L5-S1 epidural abscess eccentric to the right side. She has a history of IV drug abuse with Dilaudid more recently in May 2018 was last time she reportedly injected a few times. She has a history of endocarditis 2 as well as a right hip abscess and osteomyelitis treated several years ago. I recommended a L5-S1 laminectomy with epidural abscess evacuation and subsequent parenteral antibiotics for 6-8 weeks as per the discretion of infectious disease. She is also counseled on cessation of IV drug abuse otherwise any treatment efforts would like to be futile due to risk for recurrent infections with risk of paralysis/sepsis/. Pain management is also going to be challenging given her history of drug abuse and she understands that I do not participate in chronic pain management. s/p L5/S1 laminectomy with epidural abscess evacuation on 07/23/18. Continue with antibiotics per infectious disease service Continue with PT. No changes to current management She wants to leave the hospital soon, but obviously with her history it would probably be unwise to send her out with any PICC line or central catheter. I advised her that she may need to stay in the hospital for her IV antibiotic course for this reason, and she was understanding.
--- NOTE | 2018-07-26 09:48 | P.PNIM ---
Subjective Interval history: f/u; epidural abscess in no acute distress. looks fairly comfortable. d/w the RN and no acute issues over night. Physical Exam Vital signs: Vital Signs 07/25/18 09:46 07/25/18 12:00 07/25/18 14:27 Temperature 98.6 F Pulse Rate 83 Respiratory Rate 16 17 14 Blood Pressure 119/70 Pulse Oximetry 96 07/25/18 16:00 07/25/18 17:05 07/25/18 20:00 Temperature 99.0 F 99.8 F H Pulse Rate 84 105 H Respiratory Rate 16 14 19 Blood Pressure 111/62 110/74 Pulse Oximetry 98 98 07/26/18 00:00 07/26/18 04:00 Temperature 98.8 F 98.5 F Pulse Rate 90 92 H Respiratory Rate 17 17 Blood Pressure 99/60 L 107/73 Pulse Oximetry 98 98 Intake & Output 07/25/18 07/26/18 07/26/18 18:59 06:59 18:59 Intake Total 800 / 800 300 / 300 100 / 100 Balance 800 / 800 300 / 300 100 / 100 Weight 65.9 kg Intake: IV 300 / 300 300 / 300 100 / 100 Prostaphlin Inj 2 GM In NS Inj 300 / 300 300 / 300 100 / 100 100 ML @ 200 mls/hr IV.SIG Q4H [facility] Rx#:[id number] Oral 500 / 500 Other: # Voids 5 Date of Last Bowel Movement 07/23/18 # Bowel Movements 0 - Constitutional no acute distress - Routine Respiratory Exam Present: CTA bilaterally - Routine Cardiovascular Exam Present: RRR - Routine Abdominal Exam Present: soft - Routine Extremities Exam Comments: no pedal edema. - Routine Neurological Exam Present: alert, oriented X3 Results - Labs CBC & Chem 7: 07/24/18 06:19 07/25/18 05:50 Microbiology 07/23/18 14:16 Abscess - Other Gram Stain - Final 07/23/18 14:16 Abscess - Other Wound Culture - Final Staphylococcus aureus 07/23/18 14:16 Abscess - Other Gram Stain - Final 07/23/18 14:16 Abscess - Other Wound Culture - Final Staphylococcus aureus 07/23/18 04:40 Blood - Peripheral Aerobic Blood Culture - Preliminary Staphylococcus aureus 07/23/18 04:40 Blood - Peripheral Anaerobic Blood Culture - Preliminary No growth in 2 days 07/23/18 04:50 Blood - Peripheral Aerobic Blood Culture - Preliminary No growth in 2 days 07/23/18 04:50 Blood - Peripheral Anaerobic Blood Culture - Preliminary Staphylococcus aureus Assessment and Plan - Plan Epidural abscess. Suspected bacterial infection staph bacteremia s/p L5-S1 laminectomy with epidural abscess evacuation and subsequent parenteral antibiotics for 6-8 weeks as per the discretion of infectious disease. echo with EF 60% and no vegetation. wound culture with MSSA. continue with Oxacillin. repeated blood cultures pending. continue with pain control; will gradually taper off the IV narcotics. ID and neurosurgery following. History of IV drug use. Cessation counseling provided. Avoid IV narcotics. hepatitis- f/u as outpatient. Discharge Planning: when cleared by ID and neurosurgery.
[2018-07-27] MEDS: oxyCODONE/Acetaminophen 10/325 Tablet PO PRN ×6 (01:30→21:27)
[2018-07-27] MEDS: Morphine Sulfate Inj 2 MG/ML Vial IV.PUSH PRN ×6 (02:27→22:22)
[2018-07-27 08:23] LABS: Glomerular Filtration Rate Greater Than 89 mL/min (>89)
[2018-07-27] MEDS: Senna/Docusate Sodium 8.6/50 MG Tablet PO SCH ×2 (09:06→21:27)
--- NOTE | 2018-07-27 10:29 | P.PNIM ---
Subjective Interval history: f/u; epidural abscess/bacteremia in no acute distress. has some back pain. no BM yet. afebrile. no other complaints. Physical Exam Vital signs: Vital Signs 07/26/18 10:35 07/26/18 10:47 07/26/18 12:00 Temperature 98.5 F Pulse Rate 99 H Respiratory Rate 14 14 20 Blood Pressure 121/74 Pulse Oximetry 97 07/26/18 14:24 07/26/18 16:00 07/26/18 20:00 Temperature 98.8 F 98.8 F Pulse Rate 85 87 Respiratory Rate 14 20 18 Blood Pressure 111/68 107/70 Pulse Oximetry 97 97 07/27/18 00:00 07/27/18 04:00 07/27/18 08:00 Temperature 98.9 F 98.7 F 98.3 F Pulse Rate 79 73 76 Respiratory Rate 18 18 16 Blood Pressure 101/58 L 122/59 L 106/61 Pulse Oximetry 97 97 97 Intake & Output 07/26/18 07/27/18 07/27/18 18:59 06:59 18:59 Intake Total 1300 / 1300 300 / 300 Balance 1300 / 1300 300 / 300 Intake: IV 1300 / 1300 300 / 300 NS + KCl 20 mEq Inj 1,000 ML @ 1000 / 1000 100 mls/hr IV.CONT .Q10H [facility] Rx #:[id number] Prostaphlin Inj 2 GM In NS Inj 300 / 300 300 / 300 100 ML @ 200 mls/hr IV.SIG Q4H [facility] Rx#:[id number] Other: # Voids 2 Date of Last Bowel Movement 07/23/18 - Constitutional no acute distress - Routine Respiratory Exam Present: CTA bilaterally - Routine Cardiovascular Exam Present: RRR - Routine Abdominal Exam Present: soft - Routine Extremities Exam Comments: no pedal edema. - Routine Neurological Exam Present: alert, oriented X3 Results - Labs CBC & Chem 7: 07/24/18 06:19 07/27/18 07:50 Laboratory Results - last 24 hr 07/27/18 07:50 Creatinine 0.68 Estimated GFR Greater than 89 Microbiology 07/25/18 13:00 Blood - Peripheral Aerobic Blood Culture - Preliminary No growth in 1 day 07/25/18 13:00 Blood - Peripheral Anaerobic Blood Culture - Preliminary No growth in 1 day 07/25/18 13:08 Blood - Peripheral Aerobic Blood Culture - Preliminary No growth in 1 day 07/25/18 13:08 Blood - Peripheral Anaerobic Blood Culture - Preliminary No growth in 1 day 07/23/18 04:40 Blood - Peripheral Aerobic Blood Culture - Final Staphylococcus aureus 07/23/18 04:40 Blood - Peripheral Anaerobic Blood Culture - Preliminary No growth in 3 days 07/23/18 04:50 Blood - Peripheral Aerobic Blood Culture - Preliminary No growth in 3 days 07/23/18 04:50 Blood - Peripheral Anaerobic Blood Culture - Final Staphylococcus aureus Assessment and Plan - Plan Epidural abscess. Suspected bacterial infection staph bacteremia s/p L5-S1 laminectomy with epidural abscess evacuation and subsequent parenteral antibiotics for 6-8 weeks as per the discretion of infectious disease. echo with EF 60% and no vegetation. wound culture with MSSA. continue with Oxacillin; PICC line can be placed three days after negative blood cultures. repeated blood cultures negative so far. continue with pain control; will gradually taper off the IV narcotics. ID and neurosurgery following. History of IV drug use. Cessation counseling provided. Avoid IV narcotics. Constipation; laxatives as needed. hepatitis- f/u as outpatient. Discharge Planning: when cleared by ID and neurosurgery.
--- NOTE | 2018-07-27 11:01 | P.PNNS ---
Subjective Interval history: 07/27: continues to c/o back pain Physical Exam Vital signs: Vital Signs 07/26/18 12:00 07/26/18 14:24 07/26/18 16:00 Temperature 98.5 F 98.8 F Pulse Rate 99 H 85 Respiratory Rate 20 14 20 Blood Pressure 121/74 111/68 Pulse Oximetry 97 97 07/26/18 20:00 07/27/18 00:00 07/27/18 04:00 Temperature 98.8 F 98.9 F 98.7 F Pulse Rate 87 79 73 Respiratory Rate 18 18 18 Blood Pressure 107/70 101/58 L 122/59 L Pulse Oximetry 97 97 97 07/27/18 08:00 Temperature 98.3 F Pulse Rate 76 Respiratory Rate 16 Blood Pressure 106/61 Pulse Oximetry 97 Intake & Output 07/26/18 07/27/18 07/27/18 18:59 06:59 18:59 Intake Total 1300 / 1300 300 / 300 Balance 1300 / 1300 300 / 300 Intake: IV 1300 / 1300 300 / 300 NS + KCl 20 mEq Inj 1,000 ML @ 1000 / 1000 100 mls/hr IV.CONT .Q10H [facility] Rx #:[id number] Prostaphlin Inj 2 GM In NS Inj 300 / 300 300 / 300 100 ML @ 200 mls/hr IV.SIG Q4H [facility] Rx#:[id number] Other: # Voids 2 Date of Last Bowel Movement 07/23/18 Narrative: Awake, appearing comfortable in NAD in bed but complains of back pain moving lower extremities well Assessment and Plan - Plan A: 38-year-old lady with a 6 week history of low back pain with subsequent radiation to the right leg with intractable pain. She has low-grade fever with elevated sed rate and C-reactive protein an MRI scan consistent with a L5-S1 epidural abscess eccentric to the right side. She has a history of IV drug abuse with Dilaudid more recently in May 2018 was last time she reportedly injected a few times. She has a history of endocarditis 2 as well as a right hip abscess and osteomyelitis treated several years ago. I recommended a L5-S1 laminectomy with epidural abscess evacuation and subsequent parenteral antibiotics for 6-8 weeks as per the discretion of infectious disease. She is also counseled on cessation of IV drug abuse otherwise any treatment efforts would like to be futile due to risk for recurrent infections with risk of paralysis/sepsis/. Pain management is also going to be challenging given her history of drug abuse and she understands that I do not participate in chronic pain management. s/p L5/S1 laminectomy with epidural abscess evacuation on 07/23/18. Continue with antibiotics per infectious disease service Continue with PT. No changes to current management She wants to leave the hospital soon, but obviously with her history it would probably be unwise to send her out with any PICC line or central catheter. I advised her that she may need to stay in the hospital for her IV antibiotic course for this reason, and she was understanding.
[2018-07-28] MEDS: oxyCODONE/Acetaminophen 10/325 Tablet PO PRN ×6 (01:44→21:43)
[2018-07-28] MEDS: Morphine Sulfate Inj 2 MG/ML Vial IV.PUSH PRN ×5 (02:28→23:11)
[2018-07-28] MEDS: Senna/Docusate Sodium 8.6/50 MG Tablet PO SCH ×2 (09:24→21:43)
--- NOTE | 2018-07-28 11:30 | P.PNIM ---
Subjective Interval history: in no acute distress. looks somewhat more comfortable today. had a BM last night. no fever. Physical Exam Vital signs: Vital Signs 07/27/18 12:00 07/27/18 16:00 07/27/18 21:00 Temperature 99.3 F 98.1 F 98 F Pulse Rate 83 82 94 H Respiratory Rate 16 18 16 Blood Pressure 100/67 104/61 110/64 Pulse Oximetry 97 97 100 07/28/18 00:20 07/28/18 05:15 07/28/18 08:00 Temperature 97.6 F 98 F 98.1 F Pulse Rate 86 80 89 Respiratory Rate 17 18 18 Blood Pressure 112/67 115/63 105/61 Pulse Oximetry 99 99 97 Intake & Output 07/27/18 07/28/18 07/28/18 18:59 06:59 18:59 Intake Total 300 / 300 1940 / 1940 100 / 100 Balance 300 / 300 1940 / 1940 100 / 100 Weight 66 kg Intake: IV 300 / 300 300 / 300 100 / 100 Prostaphlin Inj 2 GM In NS Inj 300 / 300 300 / 300 100 / 100 100 ML @ 200 mls/hr IV.SIG Q4H [facility] Rx#:[id number] Oral 1640 / 1640 Other: # Voids 4 Date of Last Bowel Movement 07/23/18 # Bowel Movements 1 - Constitutional no acute distress - Routine Respiratory Exam Present: CTA bilaterally - Routine Cardiovascular Exam Present: RRR - Routine Abdominal Exam Present: soft - Routine Extremities Exam Comments: no pedal edema. - Routine Neurological Exam Present: alert, oriented X3 Results - Labs CBC & Chem 7: 07/24/18 06:19 07/27/18 07:50 Microbiology 07/25/18 13:00 Blood - Peripheral Aerobic Blood Culture - Preliminary No growth in 3 days 07/25/18 13:00 Blood - Peripheral Anaerobic Blood Culture - Preliminary No growth in 3 days 07/25/18 13:08 Blood - Peripheral Aerobic Blood Culture - Preliminary No growth in 3 days 07/25/18 13:08 Blood - Peripheral Anaerobic Blood Culture - Preliminary No growth in 3 days 07/23/18 04:40 Blood - Peripheral Aerobic Blood Culture - Final Staphylococcus aureus 07/23/18 04:40 Blood - Peripheral Anaerobic Blood Culture - Final No growth in 5 days 07/23/18 04:50 Blood - Peripheral Aerobic Blood Culture - Final No growth in 5 days 07/23/18 04:50 Blood - Peripheral Anaerobic Blood Culture - Final Staphylococcus aureus Assessment and Plan - Plan Epidural abscess. Suspected bacterial infection staph bacteremia s/p L5-S1 laminectomy with epidural abscess evacuation and subsequent parenteral antibiotics for 6-8 weeks as per the discretion of infectious disease. echo with EF 60% and no vegetation. wound culture with MSSA. continue with Oxacillin; PICC line can be placed three days after negative blood cultures. repeated blood cultures negative so far. continue with pain control; will gradually taper off the IV narcotics. ID and neurosurgery following. History of IV drug use. Cessation counseling provided. Avoid IV narcotics. Constipation; laxatives as needed. hepatitis- f/u as outpatient. Discharge Planning: when cleared by ID and neurosurgery.
[2018-07-29] MEDS: oxyCODONE/Acetaminophen 10/325 Tablet PO PRN ×6 (01:43→22:34)
[2018-07-29] MEDS: Morphine Sulfate Inj 2 MG/ML Vial IV.PUSH PRN ×5 (02:57→20:20)
[2018-07-29] MEDS: Senna/Docusate Sodium 8.6/50 MG Tablet PO SCH ×2 (08:32→20:25)
--- NOTE | 2018-07-29 11:42 | P.PNIM ---
Subjective Interval history: f/u; epidural abscess walking in the hallway. looks and feels more comfortable. no fever. Physical Exam Vital signs: Vital Signs 07/28/18 12:00 07/28/18 16:00 07/28/18 22:00 Temperature 98.2 F 98.4 F 98 F Pulse Rate 96 H 92 H 98 H Respiratory Rate 18 18 17 Blood Pressure 114/65 107/68 108/74 Pulse Oximetry 99 97 97 07/29/18 00:00 07/29/18 04:30 07/29/18 08:00 Temperature 98.6 F 98 F 98.2 F Pulse Rate 125 H 80 88 Respiratory Rate 18 18 18 Blood Pressure 136/84 110/63 112/63 Pulse Oximetry 98 100 99 Intake & Output 07/28/18 07/29/18 07/29/18 18:59 06:59 18:59 Intake Total 1400 / 1400 1840 / 1840 100 / 100 Balance 1400 / 1400 1840 / 1840 100 / 100 Intake: IV 200 / 200 400 / 400 100 / 100 Prostaphlin Inj 2 GM In NS Inj 200 / 200 400 / 400 100 / 100 100 ML @ 200 mls/hr IV.SIG Q4H [facility] Rx#:[id number] Oral 1200 / 1200 1440 / 1440 Other: # Voids 5 2 1 # Bowel Movements 0 - Constitutional no acute distress - Routine Respiratory Exam Present: CTA bilaterally - Routine Cardiovascular Exam Present: RRR - Routine Abdominal Exam Present: soft - Routine Extremities Exam Comments: no pedal edema. - Routine Neurological Exam Present: alert, oriented X3 Results - Labs CBC & Chem 7: 07/24/18 06:19 07/29/18 06:00 Laboratory Results - last 24 hr 07/29/18 06:00 Creatinine 0.76 Estimated GFR 86 L Microbiology 07/25/18 13:00 Blood - Peripheral Aerobic Blood Culture - Preliminary No growth in 4 days 07/25/18 13:00 Blood - Peripheral Anaerobic Blood Culture - Preliminary No growth in 4 days 07/25/18 13:08 Blood - Peripheral Aerobic Blood Culture - Preliminary No growth in 4 days 07/25/18 13:08 Blood - Peripheral Anaerobic Blood Culture - Preliminary No growth in 4 days 07/23/18 04:40 Blood - Peripheral Aerobic Blood Culture - Final Staphylococcus aureus 07/23/18 04:40 Blood - Peripheral Anaerobic Blood Culture - Final No growth in 5 days 07/23/18 04:50 Blood - Peripheral Aerobic Blood Culture - Final No growth in 5 days 07/23/18 04:50 Blood - Peripheral Anaerobic Blood Culture - Final Staphylococcus aureus Assessment and Plan - Plan Epidural abscess. staph bacteremia s/p L5-S1 laminectomy with epidural abscess evacuation and subsequent parenteral antibiotics for 6-8 weeks as per the discretion of infectious disease. echo with EF 60% and no vegetation. wound culture with MSSA. continue with Oxacillin; PICC line can be placed three days after negative blood cultures. repeated blood cultures negative so far. continue with pain control; will gradually taper off the IV narcotics. ID and neurosurgery following. History of IV drug use. Cessation counseling provided. Avoid IV narcotics. Constipation; laxatives as needed. hepatitis- f/u as outpatient. Discharge Planning: when cleared by ID and neurosurgery.
--- NOTE | 2018-07-29 14:23 | P.PNNS ---
Subjective Interval history: 07/28/18: Pt seen and examined on 07/28/18 but note did not save. She is awake and alert. Complains of incisional back pain but some improvement. She complains of pain radiating into the right lateral thigh and calf. she is walking independently to the bathroom. Physical Exam Vital signs: Vital Signs 07/28/18 16:00 07/28/18 22:00 07/29/18 00:00 Temperature 98.4 F 98 F 98.6 F Pulse Rate 92 H 98 H 125 H Respiratory Rate 18 Blood Pressure 107/68 108/74 136/84 Pulse Oximetry 97 97 98 07/29/18 04:30 07/29/18 08:00 07/29/18 12:00 Temperature 98 F 98.2 F 99.4 F Pulse Rate 80 88 99 H Respiratory Rate 18 18 16 Blood Pressure 110/63 112/63 123/63 Pulse Oximetry 100 99 96 Intake & Output 07/28/18 07/29/18 07/29/18 18:59 06:59 18:59 Intake Total 1400 / 1400 1840 / 1840 200 / 200 Balance 1400 / 1400 1840 / 1840 200 / 200 Intake: IV 200 / 200 400 / 400 200 / 200 Prostaphlin Inj 2 GM In NS Inj 200 / 200 400 / 400 200 / 200 100 ML @ 200 mls/hr IV.SIG Q4H [facility] Rx#:[id number] Oral 1200 / 1200 1440 / 1440 Other: # Voids 5 2 1 # Bowel Movements 0 - Constitutional no acute distress - Routine HEENT Exam Head: Present: normocephalic, atraumatic Eye: Present: PERRL (Pupils 3mm bilaterally reactive bilaterally.). Absent: conjunctival icterus ENT: Present: oropharynx clear - Routine Neck Exam Present: trachea midline - Routine Respiratory Exam Present: CTA bilaterally. Absent: respiratory distress, rhonchi, wheezes - Routine Cardiovascular Exam Present: RRR, S1, S2. Absent: murmur - Routine Abdominal Exam Present: soft, normoactive bowel sounds. Absent: tenderness, distended - Routine Skin Exam Absent: cyanosis, erythema Comments: Incision clean and dry without signs of infection. - Routine Neurological Exam Present: alert, moving all extremities (Overall good strength. Pt with some limitation secondary to exacerbation of pain in particular right iliopsoas giveaway strength but otherwise 5/5 in LEs.), normal speech. Absent: sensory deficit, altered mental status - Detailed Neurological Exam: Coma Scale Eye Opening: Spontaneous Verbal Response: Oriented Motor Response: Obey commands [place] Coma Scale Total: 15 - Routine Psychiatric Exam Present: normal affect, cooperative. Absent: anxious, agitated Assessment and Plan - Assessment (1) Epidural abscess Code(s): G06.2 - Extradural and subdural abscess, unspecified Status: Acute (2) Abscess in epidural space of lumbar spine Code(s): G06.1 - Intraspinal abscess and granuloma Status: Acute (3) No history of previous surgery Status: Acute - Plan A: 38-year-old lady with a 6 week history of low back pain with subsequent radiation to the right leg with intractable pain. She has low-grade fever with elevated sed rate and C-reactive protein an MRI scan consistent with a L5-S1 epidural abscess eccentric to the right side. She has a history of IV drug abuse with Dilaudid more recently in May 2018 was last time she reportedly injected a few times. She has a history of endocarditis 2 as well as a right hip abscess and osteomyelitis treated several years ago. I recommended a L5-S1 laminectomy with epidural abscess evacuation and subsequent parenteral antibiotics for 6-8 weeks as per the discretion of infectious disease. She is also counseled on cessation of IV drug abuse otherwise any treatment efforts would like to be futile due to risk for recurrent infections with risk of paralysis/sepsis/. Pain management is also going to be challenging given her history of drug abuse and she understands that I do not participate in chronic pain management. s/p L5/S1 laminectomy with epidural abscess evacuation on 07/23/18. Continue with antibiotics per infectious disease service Continue with PT. No changes to current management Pt understands that she may require terminal clerk antibiotics via PICC line and that this is to be used for antibiotics only.
--- NOTE | 2018-07-29 14:44 | P.PNNS ---
Subjective Interval history: 07/29/18: Pt awake and alert. Complains of low back pain but seems more comfortable. She is ambulating independently. Pt had BM. Physical Exam Vital signs: Vital Signs 07/28/18 16:00 07/28/18 22:00 07/29/18 00:00 Temperature 98.4 F 98 F 98.6 F Pulse Rate 92 H 98 H 125 H Respiratory Rate 18 17 18 Blood Pressure 107/68 108/74 136/84 Pulse Oximetry 97 97 98 07/29/18 04:30 07/29/18 08:00 07/29/18 12:00 Temperature 98 F 98.2 F 99.4 F Pulse Rate 80 88 99 H Respiratory Rate 18 18 16 Blood Pressure 110/63 112/63 123/63 Pulse Oximetry 100 99 96 Intake & Output 07/28/18 07/29/18 07/29/18 18:59 06:59 18:59 Intake Total 1400 / 1400 1840 / 1840 200 / 200 Balance 1400 / 1400 1840 / 1840 200 / 200 Intake: IV 200 / 200 400 / 400 200 / 200 Prostaphlin Inj 2 GM In NS Inj 200 / 200 400 / 400 200 / 200 100 ML @ 200 mls/hr IV.SIG Q4H [facility] Rx#:[id number] Oral 1200 / 1200 1440 / 1440 Other: # Voids 5 2 1 # Bowel Movements 0 - Constitutional no acute distress, average body habitus, cooperative - Routine HEENT Exam Head: Present: normocephalic Eye: Present: PERRL ENT: Present: oropharynx clear - Routine Neck Exam Present: trachea midline - Routine Respiratory Exam Present: CTA bilaterally. Absent: respiratory distress, rhonchi, wheezes - Routine Cardiovascular Exam Present: RRR, S1, S2. Absent: murmur - Routine Abdominal Exam Present: soft, normoactive bowel sounds. Absent: tenderness, distended - Routine Skin Exam Absent: cyanosis, erythema - Routine Neurological Exam Present: alert, oriented X3, moving all extremities, normal speech. Absent: sensory deficit, motor deficit, altered mental status - Routine Psychiatric Exam Present: normal affect, normal thought process, cooperative. Absent: anxious, agitated Assessment and Plan - Assessment (1) Epidural abscess Code(s): G06.2 - Extradural and subdural abscess, unspecified Status: Acute (2) Abscess in epidural space of lumbar spine Code(s): G06.1 - Intraspinal abscess and granuloma Status: Acute (3) No history of previous surgery Status: Acute - Plan A: 38-year-old lady with a 6 week history of low back pain with subsequent radiation to the right leg with intractable pain. She has low-grade fever with elevated sed rate and C-reactive protein an MRI scan consistent with a L5-S1 epidural abscess eccentric to the right side. She has a history of IV drug abuse with Dilaudid more recently in May 2018 was last time she reportedly injected a few times. She has a history of endocarditis 2 as well as a right hip abscess and osteomyelitis treated several years ago. I recommended a L5-S1 laminectomy with epidural abscess evacuation and subsequent parenteral antibiotics for 6-8 weeks as per the discretion of infectious disease. She is also counseled on cessation of IV drug abuse otherwise any treatment efforts would like to be futile due to risk for recurrent infections with risk of paralysis/sepsis/. Pain management is also going to be challenging given her history of drug abuse and she understands that I do not participate in chronic pain management. s/p L5/S1 laminectomy with epidural abscess evacuation on 07/23/18. Continue with antibiotics per infectious disease service Continue with PT. 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
[2018-07-30] MEDS: Morphine Sulfate Inj 2 MG/ML Vial IV.PUSH PRN ×5 (02:21→22:05)
[2018-07-30 05:45] LABS: Baso % (Auto) 0.5 % (0.0-2.0); Eos # (Auto) 0.3 th/mm3 (0.0-0.4); Eos % (Auto) 5.5 % (0.0-4.0); Hematocrit 35.1 % (35.0-46.0); Hemoglobin 11.8 gm/dL (11.6-15.3); Lymph # (Auto) 1.3 th/mm3 (1.0-4.8); Lymph % (Auto) 24.3 % (9.0-44.0); Mean Corpuscular HGB Conc 33.8 % (32.0-36.0); Mean Corpuscular Hemoglobin 29.1 pg (27.0-34.0); Mean Corpuscular Volume 86.2 fL (80.0-100.0); Mean Platelet Volume 7.2 fL (7.0-11.0); Mono # (Auto) 0.5 th/mm3 (0.0-0.9); Mono % (Auto) 8.9 % (0.0-8.0); Neut # (Auto) 3.2 th/mm3 (1.8-7.7); Neut % (Auto) 60.8 % (16.0-70.0); Platelet Count 353 th/mm3 (150-450); Red Blood Count 4.07 mil/mm3 (4.00-5.30); White Blood Count 5.2 th/mm3 (4.0-11.0)
[2018-07-30 05:55] LABS: Albumin 2.5 g/dL (3.4-5.0); Anion Gap 10 meq/L (5-15); Aspartate Aminotransferase 33 U/L (15-37); Blood Urea Nitrogen 10 mg/dL (7-18); Calcium 8.9 mg/dL (8.5-10.1); Carbon Dioxide 27.2 meq/L (21.0-32.0); Chloride 103 meq/L (98-107); Glomerular Filtration Rate 86 mL/min (>89); Glucose,Random 80 mg/dL (74-106); Potassium 3.9 meq/L (3.5-5.1); Sodium 140 meq/L (136-145)
[2018-07-30 05:56] LABS: Alanine Aminotransferase 24 U/L (10-53)
[2018-07-30 05:58] LABS: Alkaline Phosphatase 73 U/L (45-117); Total Protein 7.3 g/dL (6.4-8.2)
[2018-07-30] MEDS: Senna/Docusate Sodium 8.6/50 MG Tablet PO SCH ×2 (08:22→21:07)
[2018-07-30] MEDS: oxyCODONE/Acetaminophen 10/325 Tablet PO PRN ×4 (08:22→21:06)
--- NOTE | 2018-07-30 11:37 | P.PNIM ---
Subjective Interval history: f/u; epidural abscess in no distress. pain seems to be fairly controlled. no fever. Physical Exam Vital signs: Vital Signs 07/29/18 12:00 07/29/18 16:00 07/29/18 20:00 Temperature 99.4 F 98.3 F 98.6 F Pulse Rate 99 H 99 H 86 Respiratory Rate 16 18 18 Blood Pressure 123/63 121/78 112/57 L Pulse Oximetry 96 99 99 07/29/18 21:06 07/30/18 00:00 07/30/18 01:00 Temperature 98.3 F Pulse Rate 82 Respiratory Rate 4 L 18 16 Blood Pressure 101/58 L Pulse Oximetry 96 07/30/18 02:46 07/30/18 04:00 07/30/18 05:07 Temperature 97.6 F Pulse Rate 73 Respiratory Rate 16 18 16 Blood Pressure 94/53 L Pulse Oximetry 91 L 07/30/18 08:00 Temperature 97.1 F L Pulse Rate 71 Respiratory Rate 20 Blood Pressure 103/51 L Pulse Oximetry 98 Intake & Output 07/29/18 07/30/18 07/30/18 18:59 06:59 18:59 Intake Total 200 / 200 400 / 400 100 / 100 Output Total 2 / 2 Balance 200 / 200 400 / 400 98 / 98 Intake: IV 200 / 200 400 / 400 100 / 100 Prostaphlin Inj 2 GM In NS Inj 200 / 200 400 / 400 100 / 100 100 ML @ 200 mls/hr IV.SIG Q4H [facility] Rx#:[id number] Output: Urine 1 / Stool 1 / Other: # Voids 1 1 Date of Last Bowel Movement 07/30/18 - Constitutional no acute distress - Routine Respiratory Exam Present: CTA bilaterally - Routine Cardiovascular Exam Present: RRR - Routine Abdominal Exam Present: soft - Routine Extremities Exam Comments: no pedal edema. - Routine Neurological Exam Present: alert, oriented X3 Results - Labs CBC & Chem 7: 07/30/18 05:15 07/30/18 05:15 Laboratory Results - last 24 hr 07/30/18 07/30/18 05:15 05:15 WBC 5.2 RBC 4.07 Hgb 11.8 Hct 35.1 MCV 86.2 MCH 29.1 MCHC 33.8 RDW 13.0 Plt Count 353 D MPV 7.2 Neut % (Auto) 60.8 Lymph % (Auto) 24.3 [place] % (Auto) 8.9 H Eos % (Auto) 5.5 H Baso % (Auto) 0.5 Neut # (Auto) 3.2 Lymph # (Auto) 1.3 [place] # (Auto) 0.5 Eos # (Auto) 0.3 Baso # (Auto) 0.0 WBC Differential . Differential Comment Auto diff final Sodium 140 Potassium 3.9 Chloride 103 Carbon Dioxide 27.2 Anion Gap 10 BUN 10 Creatinine 0.76 Estimated GFR 86 L Random Glucose 80 Calcium 8.9 Total Bilirubin 0.2 AST 33 ALT 24 Alkaline Phosphatase 73 Total Protein 7.3 D Albumin 2.5 L Microbiology 07/25/18 13:00 Blood - Peripheral Aerobic Blood Culture - Final No growth in 5 days 07/25/18 13:00 Blood - Peripheral Anaerobic Blood Culture - Final No growth in 5 days 07/25/18 13:08 Blood - Peripheral Aerobic Blood Culture - Final No growth in 5 days 07/25/18 13:08 Blood - Peripheral Anaerobic Blood Culture - Final No growth in 5 days Assessment and Plan - Plan Epidural abscess. staph bacteremia s/p L5-S1 laminectomy with epidural abscess evacuation and subsequent parenteral antibiotics for 6-8 weeks as per the discretion of infectious disease. echo with EF 60% and no vegetation. wound culture with MSSA. continue with Oxacillin; PICC line per ID. repeated blood cultures negative so far. continue with pain control; will gradually taper off the IV narcotics. ID and neurosurgery following. History of IV drug use. Cessation counseling provided. Avoid IV narcotics. Constipation; laxatives as needed. hepatitis- f/u as outpatient. Discharge Planning: when cleared by ID and neurosurgery.
--- NOTE | 2018-07-30 15:37 | P.PNNS ---
Subjective Interval history: Pt awake and alert. Complains of drenching sweats. She complains of low back pain and pain in the right hip and posterolateral right leg and some pain extending into the right anterior thigh. No chest pain or sob. Physical Exam Vital signs: Vital Signs 07/29/18 16:00 07/29/18 20:00 07/29/18 21:06 Temperature 98.3 F 98.6 F Pulse Rate 99 H 86 Respiratory Rate 18 18 4 L Blood Pressure 121/78 112/57 L Pulse Oximetry 99 99 07/30/18 00:00 07/30/18 01:00 07/30/18 02:46 Temperature 98.3 F Pulse Rate 82 Respiratory Rate 18 16 16 Blood Pressure 101/58 L Pulse Oximetry 96 07/30/18 04:00 07/30/18 05:07 07/30/18 08:00 Temperature 97.6 F 97.1 F L Pulse Rate 73 71 Respiratory Rate 18 16 20 Blood Pressure 94/53 L 103/51 L Pulse Oximetry 91 L 98 07/30/18 12:00 Temperature 97.7 F Pulse Rate 76 Respiratory Rate 20 Blood Pressure 91/53 L Pulse Oximetry 98 Intake & Output 07/29/18 07/30/18 07/30/18 18:59 06:59 18:59 Intake Total 200 / 200 400 / 400 200 / 200 Output Total 2 / 2 Balance 200 / 200 400 / 400 198 / 198 Intake: IV 200 / 200 400 / 400 200 / 200 Prostaphlin Inj 2 GM In NS Inj 200 / 200 400 / 400 200 / 200 100 ML @ 200 mls/hr IV.SIG Q4H [facility] Rx#:[id number] Output: Urine Stool Other: # Voids 1 1 Date of Last Bowel Movement 07/30/18 - Constitutional no acute distress, average body habitus - Routine HEENT Exam Head: Present: normocephalic Eye: Present: PERRL. Absent: conjunctival icterus ENT: Present: oropharynx clear - Routine Neck Exam Present: trachea midline - Routine Respiratory Exam Present: CTA bilaterally. Absent: rales, respiratory distress, rhonchi, wheezes - Routine Cardiovascular Exam Present: RRR, S1, S2. Absent: murmur - Routine Abdominal Exam Present: soft, normoactive bowel sounds. Absent: distended - Routine Skin Exam Absent: cyanosis, erythema - Routine Neurological Exam Present: alert, oriented X3, moving all extremities, normal speech. Absent: sensory deficit, motor deficit, altered mental status - Routine Psychiatric Exam Present: normal affect, normal thought process, cooperative. Absent: anxious, agitated Assessment and Plan - Assessment (1) Epidural abscess Code(s): G06.2 - Extradural and subdural abscess, unspecified Status: Acute (2) Abscess in epidural space of lumbar spine Code(s): G06.1 - Intraspinal abscess and granuloma Status: Acute (3) No history of previous surgery Status: Acute - Plan A: 38-year-old lady with a 6 week history of low back pain with subsequent radiation to the right leg with intractable pain. She has low-grade fever with elevated sed rate and C-reactive protein an MRI scan consistent with a L5-S1 epidural abscess eccentric to the right side. She has a history of IV drug abuse with Dilaudid more recently in May 2018 was last time she reportedly injected a few times. She has a history of endocarditis 2 as well as a right hip abscess and osteomyelitis treated several years ago. I recommended a L5-S1 laminectomy with epidural abscess evacuation and subsequent parenteral antibiotics for 6-8 weeks as per the discretion of infectious disease. She is also counseled on cessation of IV drug abuse otherwise any treatment efforts would like to be futile due to risk for recurrent infections with risk of paralysis/sepsis/. Pain management is also going to be challenging given her history of drug abuse and she understands that I do not participate in chronic pain management. s/p L5/S1 laminectomy with epidural abscess evacuation on 07/23/18. Continue with antibiotics per infectious disease service Continue with PT. Encouraged incentive spirometry 10 times an hour. Pt understands that she may require [facility] antibiotics via PICC line and that this is to be used for antibiotics only.
[2018-07-31] MEDS: oxyCODONE/Acetaminophen 10/325 Tablet PO PRN ×6 (01:18→22:06)
[2018-07-31] MEDS: Morphine Sulfate Inj 2 MG/ML Vial IV.PUSH PRN ×5 (02:11→23:22)
[2018-07-31] MEDS: Senna/Docusate Sodium 8.6/50 MG Tablet PO SCH ×2 (09:00→21:15)
--- NOTE | 2018-07-31 10:58 | P.PNIM ---
Subjective Interval history: in no acute distress. no fever. pain is improving. no new complaints. Physical Exam Vital signs: Vital Signs 07/30/18 12:00 07/30/18 16:00 07/30/18 20:00 Temperature 97.7 F 97.4 F L 97.6 F Pulse Rate 76 65 76 Respiratory Rate 20 20 18 Blood Pressure 91/53 L 101/58 L 98/60 L Pulse Oximetry 98 99 97 07/31/18 00:00 07/31/18 03:33 07/31/18 04:00 Temperature 97.8 F 98.2 F Pulse Rate 70 65 Respiratory Rate 18 18 20 Blood Pressure 107/71 115/75 Pulse Oximetry 98 98 07/31/18 07:18 07/31/18 08:00 Temperature 97.7 F Pulse Rate 61 Respiratory Rate 18 18 Blood Pressure 112/74 Pulse Oximetry 98 Intake & Output 07/30/18 07/31/18 07/31/18 18:59 06:59 18:59 Intake Total 300 / 300 680 / 680 200 / 200 Output Total 2 / 2 Balance 298 / 298 680 / 680 200 / 200 Weight 66.2 kg Intake: IV 300 / 300 200 / 200 200 / 200 Prostaphlin Inj 2 GM In NS Inj 300 / 300 200 / 200 200 / 200 100 ML @ 200 mls/hr IV.SIG Q4H [facility] Rx#:[id number] Oral 480 / 480 Output: Urine / Stool / Other: # Voids 3 Date of Last Bowel Movement 07/30/18 - Constitutional no acute distress - Routine Respiratory Exam Present: CTA bilaterally - Routine Cardiovascular Exam Present: RRR - Routine Abdominal Exam Present: soft - Routine Extremities Exam Comments: no pedal edema. - Routine Neurological Exam Present: alert, oriented X3 Results - Labs CBC & Chem 7: 07/30/18 05:15 07/31/18 05:45 Laboratory Results - last 24 hr 07/31/18 05:45 Creatinine 0.81 Estimated GFR 80 L Microbiology 07/23/18 14:16 Abscess - Other Acid Fast Bacilli Smear - Final No acid fast bacilli seen 07/23/18 14:16 Abscess - Other Mycobacterial Culture - Preliminary No growth in 1 week 07/23/18 14:16 Abscess - Other Fungal Smear - Final No fungal elements seen 07/23/18 14:16 Abscess - Other Fungal Culture - Preliminary No growth in 1 week 07/23/18 14:16 Abscess - Other Fungal Smear - Final No fungal elements seen 07/23/18 14:16 Abscess - Other Fungal Culture - Preliminary No growth in 1 week 07/23/18 14:16 Abscess - Other Acid Fast Bacilli Smear - Final No acid fast bacilli seen 07/23/18 14:16 Abscess - Other Mycobacterial Culture - Preliminary No growth in 1 week 07/25/18 13:00 Blood - Peripheral Aerobic Blood Culture - Final No growth in 5 days 07/25/18 13:00 Blood - Peripheral Anaerobic Blood Culture - Final No growth in 5 days 07/25/18 13:08 Blood - Peripheral Aerobic Blood Culture - Final No growth in 5 days 07/25/18 13:08 Blood - Peripheral Anaerobic Blood Culture - Final No growth in 5 days Assessment and Plan - Plan Epidural abscess. staph bacteremia s/p L5-S1 laminectomy with epidural abscess evacuation and subsequent parenteral antibiotics for 6-8 weeks as per the discretion of infectious disease. echo with EF 60% and no vegetation. wound culture with MSSA. continue with Oxacillin; PICC line per ID. repeated blood cultures negative so far. continue with pain control; will gradually taper off the IV narcotics. ID and neurosurgery following. History of IV drug use. Cessation counseling provided. Avoid IV narcotics. Constipation; resolved- laxatives as needed. hepatitis- f/u as outpatient. Discharge Planning: when cleared by ID and neurosurgery.
--- NOTE | 2018-07-31 12:58 | P.PNNS ---
Subjective Interval history: Pt awake and alert. Complains of right hip pain and pain extending into the right anterior, lateral and posterior thigh. Also has pain in lateral right calf. Physical Exam Vital signs: Vital Signs 07/30/18 16:00 07/30/18 20:00 07/31/18 00:00 Temperature 97.4 F L 97.6 F 97.8 F Pulse Rate 65 76 70 Respiratory Rate 20 18 18 Blood Pressure 101/58 L 98/60 L 107/71 Pulse Oximetry 99 97 98 07/31/18 03:33 07/31/18 04:00 07/31/18 07:18 Temperature 98.2 F Pulse Rate 65 Respiratory Rate 18 20 18 Blood Pressure 115/75 Pulse Oximetry 98 07/31/18 08:00 07/31/18 12:00 Temperature 97.7 F 98.1 F Pulse Rate 61 71 Respiratory Rate 18 20 Blood Pressure 112/74 104/61 Pulse Oximetry 98 97 Intake & Output 07/30/18 07/31/18 07/31/18 18:59 06:59 18:59 Intake Total 300 / 300 680 / 680 200 / 200 Output Total 2 / 2 Balance 298 / 298 680 / 680 200 / 200 Weight 66.2 kg Intake: IV 300 / 300 200 / 200 200 / 200 Prostaphlin Inj 2 GM In NS Inj 300 / 300 200 / 200 200 / 200 100 ML @ 200 mls/hr IV.SIG Q4H [facility] Rx#:[id number] Oral 480 / 480 Output: Urine / Stool / Other: # Voids 3 Date of Last Bowel Movement 07/30/18 - Constitutional no acute distress, cooperative - Routine HEENT Exam Head: Present: normocephalic, atraumatic Eye: Present: PERRL (Pupils 3mm bilaterally.). Absent: conjunctival icterus ENT: Present: oropharynx clear - Routine Neck Exam Present: trachea midline - Routine Respiratory Exam Present: CTA bilaterally. Absent: respiratory distress, rhonchi, wheezes - Routine Cardiovascular Exam Present: RRR, S1, S2. Absent: murmur - Routine Abdominal Exam Present: soft, normoactive bowel sounds. Absent: tenderness - Routine Skin Exam Absent: cyanosis, erythema Comments: Pt log rolled. Incision clean and dry. New bandage applied. Steristrips intact. - Routine Neurological Exam Present: alert, oriented X3, moving all extremities, normal speech. Absent: sensory deficit, motor deficit, altered mental status - Routine Psychiatric Exam Present: normal affect, cooperative. Absent: agitated Assessment and Plan - Assessment (1) Epidural abscess Code(s): G06.2 - Extradural and subdural abscess, unspecified Status: Acute (2) Abscess in epidural space of lumbar spine Code(s): G06.1 - Intraspinal abscess and granuloma Status: Acute (3) No history of previous surgery Status: Acute - Plan A: 38-year-old lady with a 6 week history of low back pain with subsequent radiation to the right leg with intractable pain. She has low-grade fever with elevated sed rate and C-reactive protein an MRI scan consistent with a L5-S1 epidural abscess eccentric to the right side. She has a history of IV drug abuse with Dilaudid more recently in May 2018 was last time she reportedly injected a few times. She has a history of endocarditis 2 as well as a right hip abscess and osteomyelitis treated several years ago. I recommended a L5-S1 laminectomy with epidural abscess evacuation and subsequent parenteral antibiotics for 6-8 weeks as per the discretion of infectious disease. She is also counseled on cessation of IV drug abuse otherwise any treatment efforts would like to be futile due to risk for recurrent infections with risk of paralysis/sepsis/. Pain management is also going to be challenging given her history of drug abuse and she understands that I do not participate in chronic pain management. s/p L5/S1 laminectomy with epidural abscess evacuation on 07/23/18. Continue with antibiotics per infectious disease service Continue with PT. Encouraged incentive spirometry 10 times an hour. Pt understands that she may require mcc antibiotics via PICC line and that this is to be used for antibiotics only. Pt neurosurgically stable for discharge when and if deemed appropriate by ID and medicine. Follow up at end of antibiotic treatment for post op follow up.
--- NOTE | 2018-07-31 20:05 | P.PNID ---
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) POSITIVE - 08/13/16 Objective Vital Signs 07/31/18 00:00 07/31/18 03:33 07/31/18 04:00 Temperature 97.8 F 98.2 F Pulse Rate 70 65 Respiratory Rate 18 18 20 Blood Pressure 107/71 115/75 Pulse Oximetry 98 98 07/31/18 07:18 07/31/18 08:00 07/31/18 12:00 Temperature 97.7 F 98.1 F Pulse Rate 61 71 Respiratory Rate 18 18 20 Blood Pressure 112/74 104/61 Pulse Oximetry 98 97 07/31/18 15:52 Temperature 97.9 F Pulse Rate 71 Respiratory Rate 18 Blood Pressure 102/67 Pulse Oximetry 95 Intake & Output 07/31/18 07/31/18 08/01/18 06:59 18:59 06:59 Intake Total 680 / 680 1100 / 1100 600 / 600 Balance 680 / 680 1100 / 1100 600 / 600 Weight 66.2 kg Intake: IV 200 / 200 400 / 400 Prostaphlin Inj 2 GM In NS Inj 200 / 200 400 / 400 100 ML @ 200 mls/hr IV.SIG Q4H [facility] Rx#:[id number] Oral 480 / 480 700 / 700 600 / 600 Other: # Voids 3 3 # Incontinent Bowel Movements 1 07/23/18 14:16 Abscess - Other Acid Fast Bacilli Smear - Final No acid fast bacilli seen 07/23/18 14:16 Abscess - Other Mycobacterial Culture - Preliminary No growth in 1 week 07/23/18 14:16 Abscess - Other Fungal Smear - Final No fungal elements seen 07/23/18 14:16 Abscess - Other Fungal Culture - Preliminary No growth in 1 week 07/23/18 14:16 Abscess - Other Fungal Smear - Final No fungal elements seen 07/23/18 14:16 Abscess - Other Fungal Culture - Preliminary No growth in 1 week 07/23/18 14:16 Abscess - Other Acid Fast Bacilli Smear - Final No acid fast bacilli seen 07/23/18 14:16 Abscess - Other Mycobacterial Culture - Preliminary No growth in 1 week 07/25/18 13:00 Blood - Peripheral Aerobic Blood Culture - Final No growth in 5 days 07/25/18 13:00 Blood - Peripheral Anaerobic Blood Culture - Final No growth in 5 days 07/25/18 13:08 Blood - Peripheral Aerobic Blood Culture - Final No growth in 5 days 07/25/18 13:08 Blood - Peripheral Anaerobic Blood Culture - Final No growth in 5 days Lab - Hematology Results 07/30/18 05:15 WBC 5.2 RBC 4.07 Hgb 11.8 Hct 35.1 MCV 86.2 MCH 29.1 MCHC 33.8 RDW 13.0 Plt Count 353 D MPV 7.2 Neut % (Auto) 60.8 Lymph % (Auto) 24.3 [place] % (Auto) 8.9 H Eos % (Auto) 5.5 H Baso % (Auto) 0.5 Neut # (Auto) 3.2 Lymph # (Auto) 1.3 [place] # (Auto) 0.5 Eos # (Auto) 0.3 Baso # (Auto) 0.0 WBC Differential . Differential Comment Auto diff final Lab - Chemistry Results 07/30/18 07/31/18 05:15 05:45 Sodium 140 Potassium 3.9 Chloride 103 Carbon Dioxide 27.2 Anion Gap 10 BUN 10 Creatinine 0.76 0.81 Estimated GFR 86 L 80 L Random Glucose 80 Calcium 8.9 Total Bilirubin 0.2 AST 33 ALT 24 Alkaline Phosphatase 73 Total Protein 7.3 D Albumin 2.5 L Imaging: ITS Impressions Chest X-Ray 07/23/18 00:00 CONCLUSION: 1. Right-sided central line in place and in good position. No pneumothorax. 2. No acute pulmonary infiltrates. Stable exam. Lumbar Spine X-Ray 07/23/18 00:00 CONCLUSION: Localization posteriorly at L5-S1. Lumbar Spine MRI 07/23/18 02:39 CONCLUSION: 1. Right paracentral fluid collection posterior to the L5 vertebral body and with surrounding epidural enhancement within the L4/L5 and L5/S1 right lateral recesses and foramina. There is associated mass effect on the transiting right L5 and S1 nerve roots and also the exiting L4 and L5 nerve roots. The fluid collection is nonspecific; since there is a central to right paracentral extruded disc fragment at L4/L5, its possible this represents an epidural hematoma with reactive enhancement. An epidural abscess is possible in the proper clinical setting. The fluid collection itself measures approximately 9 x 16 x 23 mm. The surrounding epidural enhancement is much larger. 2. No evidence of osteomyelitis. 3. Mild and uncomplicated/typical-appearing degenerative changes at L2/L3 and L3/L4 as described. There is an associated focal annular fissure posteriorly of the L3/L4 disc. 4. Perivertebral soft tissues are within normal limits. 5. Chronic L5 pars defects. No associated spondylolisthesis. No acute fracture. Physical Exam: GENERAL: NAD SKIN: Warm and dry. HEAD: Atraumatic. Normocephalic. EYES: Pupils equal and round. No scleral icterus. No injection or drainage. CARDIOVASCULAR: Regular rate and rhythm. No murmrus RESPIRATORY: No accessory muscle use. Clear to auscultation. Breath sounds equal bilaterally. GASTROINTESTINAL: Abdomen soft, non-tender, nondistended. Hepatic and splenic margins not palpable. MUSCULOSKELETAL: Extremities without clubbing, cyanosis, or edema. No obvious deformities. BACK: minimal R paraspinal tenderness lower lumbar area NEUROLOGICAL: Awake and alert. No obvious cranial nerve deficits. Motor grossly within normal limits. Five out of 5 muscle strength in the arms and legs. Normal speech. PSYCHIATRIC: Appropriate mood and affect; insight and judgment normal. Assessment and Plan - Plan Right L5-S1 epidural abscess, MSSA sp hemilaminotomy with epidural abscess evacuation; IVDU Bacteremia, high grade, MSSA: resolved on repeat BC 2 D echo negative anticipate 8 wks of IV abx longer treatment if clinical failure or persistent high ESR/CRP PICC line can be placed with 3 days of negative blood clx Pts parents will monitor pt at home OPAT PICC dw pt
[2018-08-01] MEDS: oxyCODONE/Acetaminophen 10/325 Tablet PO PRN ×6 (02:12→22:34)
[2018-08-01] MEDS: Morphine Sulfate Inj 2 MG/ML Vial IV.PUSH PRN ×4 (05:17→23:35)
[2018-08-01] MEDS: Senna/Docusate Sodium 8.6/50 MG Tablet PO SCH ×2 (10:12→21:51)
--- NOTE | 2018-08-01 10:37 | P.PNIM ---
Subjective Interval history: f/u; epidural abscess in no distress. looks more comfortable today. no fever or new complaints. Physical Exam Vital signs: Vital Signs 07/31/18 12:00 07/31/18 15:52 07/31/18 20:00 Temperature 98.1 F 97.9 F 98.2 F Pulse Rate 71 71 75 Respiratory Rate 20 18 20 Blood Pressure 104/61 102/67 115/72 Pulse Oximetry 97 95 97 07/31/18 22:48 07/31/18 23:25 07/31/18 23:57 Temperature 97.8 F Pulse Rate 72 Respiratory Rate 18 18 16 Blood Pressure 114/59 L Pulse Oximetry 99 08/01/18 04:00 08/01/18 05:23 08/01/18 08:00 Temperature 97.2 F L 97.8 F Pulse Rate 62 64 Respiratory Rate 18 18 18 Blood Pressure 102/69 115/70 Pulse Oximetry 98 97 Intake & Output 07/31/18 08/01/18 08/01/18 18:59 06:59 18:59 Intake Total 1100 / 1100 2504 / 2504 Balance 1100 / 1100 2504 / 2504 Intake: IV 400 / 400 300 / 300 Prostaphlin Inj 2 GM In NS Inj 400 / 400 300 / 300 100 ML @ 200 mls/hr IV.SIG Q4H [facility] Rx#:[id number] Oral 700 / 700 2204 / 2204 Other: # Voids 3 3 Date of Last Bowel Movement 07/30/18 # Incontinent Bowel Movements 1 1 - Constitutional no acute distress - Routine Respiratory Exam Present: CTA bilaterally - Routine Cardiovascular Exam Present: RRR - Routine Abdominal Exam Present: soft - Routine Extremities Exam Comments: no pedal edema. - Routine Neurological Exam Present: alert, oriented X3 Results - Labs CBC & Chem 7: 07/30/18 05:15 07/31/18 05:45 Assessment and Plan - Plan Epidural abscess. staph bacteremia s/p L5-S1 laminectomy with epidural abscess evacuation and subsequent parenteral antibiotics for 6-8 weeks as per the discretion of infectious disease. echo with EF 60% and no vegetation. wound culture with MSSA. continue with Oxacillin; PICC line per ID. repeated blood cultures negative so far. continue with pain control; will gradually taper off the IV narcotics. ID and neurosurgery following. History of IV drug use. Cessation counseling provided. Avoid IV narcotics. Constipation; resolved- laxatives as needed. hepatitis- f/u as outpatient. Discharge Planning: when cleared by ID - needs IV antibiotic.
--- NOTE | 2018-08-01 11:24 | P.DCO ---
Post Hospital Infusion Therapy Location of Infusion Therapy: Home Health Care IV Infusion Order Patient Weight: 66.2 kg - Diagnosis (1) Abscess in epidural space of lumbar spine Code(s): G06.1 - Intraspinal abscess and granuloma - Administer Medication Oxacillin Dose: 12 grams IV Directions: Continuous with pump Start Treatment: 08/01/18 Stop Treatment: 09/18/18 - Additional Information Venous Access: PICC Line Additional Instructions: [x] Peripheral flush and dressing changes per protocol [x] Implanted port and central commercial lines manager: * Implanted port: 10 ml Normal Saline followed by 5 ml Heparin 100 units/ml Heparin flush after each use and monthly to maintain. [] May leave port accessed during therapy. [] May leave peripheral site accessed for duration of therapy. [x] If patient has SOB or respiratory distress, check oxygen saturation. If less than 90% or clinical signs of respiratory distress, administer oxygen at 2 L/min. via nasal cannula and notify physician. [x] Anaphylaxis/Reaction orders: * Stop infusion. * Keep IV line open with saline flush. * Notify physician. * Monitor vital signs every 15 minutes until symptoms resolve. * Check Oxygen saturation; Oxygen at 2 L/min. via nasal cannula if less than 90% or clinical signs of respiratory distress. * Administer diphenhydramine (Benadryl) 25 mg IV STAT, (unless patient has received as pre-med). May repeat once, if necessary. * Solu-Cortef 250 mg IVP over 30-60 seconds, use 100 mg vials for each dissolution. * Epinephrine (1mg/1 ml) 0.3 mg subcutaneously or IVP now with any signs of respiratory distress. * Check with physician for new additional pre-med orders if patient is re- challenged or re-treated. [x] May remove PICC line when treatment complete, after confirming with Physician. [x] If the patient is admitted to the hospital, the ED, or transferred via [facility] , complete transfer form including medication reconciliation order sheet. Weekly Labs: CBC w/diff, CMP, CRP, SED Rate Allergies *MDRO Multi-Drug Resistant Organism Adverse Reaction (Unknown, Uncoded 08/13/16 09:54) MRSA (hip/synovial fluid) - 04/2014 MRSA PCR screen (nares) POSITIVE - 08/13/16
--- NOTE | 2018-08-01 11:57 | P.DCO ---
- Home Health Nursing Order: Medical education, Signs/symptoms of disease process, Medication education-adverse effect, IV medication administration - Certification I have seen patient Ronda Arita on 08/01/18. My clinical findings support the need for the requested home health care services because: Limited mobility due to disease progression I certify that my clinical findings support that this patient is homebound because: Post-op weakness
[2018-08-01] MEDS ORDERED: Heparin Central Flush 100 UNIT/ML 5 ML Vial IV.FLUSH PRN (16:59)
--- NOTE | 2018-08-01 17:07 | XR ---
EXAM DATE: 08/01/2018 5:03 PM EDT AGE/SEX: 38 years / Female INDICATIONS: PICC placement verification. CLINICAL DATA: This is the patient's subsequent encounter. Patient reports that signs and symptoms h ave been present for 2 weeks and indicates a pain score of 0/10. MEDICAL/SURGICAL HISTORY: . Endocarditis. MRSA. Hepatitis C. Measles. Osteomyelitis in Right hi p. . Right hip for Osteomyelitis. COMPARISON: C, CHEST 1V SINGLE AP, 07/23/2018. . FINDINGS: A single AP view of the chest demonstrates the lungs to be symmetrically aerated without evidence of mass, infiltrate or effusion. The cardiomediastinal contours are unremarkable. Osseous structures a re intact. There is been interval placement of right-sided PICC line with the tip projected near the junction of the superior vena cava and right atrium. There is been interval removal of the previousl y noted right internal jugular central venous catheter. CONCLUSION: 1. PICC line in place with the tip projected near the junction of the superior vena cava and right a trium. 2. No acute cardiopulmonary disease. Electronically signed by: Suresh Brown MD 08/01/2018 5:06 PM EDT
[2018-08-02] MEDS: oxyCODONE/Acetaminophen 10/325 Tablet PO PRN ×5 (02:14→22:04)
[2018-08-02] MEDS: Morphine Sulfate Inj 2 MG/ML Vial IV.PUSH PRN ×3 (06:42→21:03)
[2018-08-02] MEDS ORDERED: Heparin Central Flush 100 UNIT/ML 5 ML Vial IV.FLUSH PRN (08:00)
[2018-08-02] MEDS: Senna/Docusate Sodium 8.6/50 MG Tablet PO SCH ×2 (08:11→21:05)
[2018-08-02] MEDS ORDERED: Heparin Central Flush 100 UNIT/ML 5 ML Syringe IV.FLUSH SCH (09:00)
--- NOTE | 2018-08-02 11:04 | P.PNIM ---
Subjective Interval history: f/u; epidural abscess in no acute distress. pain is controlled. no fever or new complaints. Physical Exam Vital signs: Vital Signs 08/01/18 12:00 08/01/18 16:00 08/01/18 20:00 Temperature 97.9 F 97.9 F 98.1 F Pulse Rate 78 76 74 Respiratory Rate 16 18 18 Blood Pressure 107/76 116/77 104/64 Pulse Oximetry 97 99 98 08/01/18 23:28 08/01/18 23:41 08/02/18 07:45 Temperature 97.6 F Pulse Rate 75 Respiratory Rate 18 19 18 Blood Pressure 118/71 Pulse Oximetry 99 08/02/18 08:00 Temperature 98 F Pulse Rate 73 Respiratory Rate 18 Blood Pressure 115/66 Pulse Oximetry 98 Intake & Output 08/01/18 08/02/18 08/02/18 18:59 06:59 18:59 Intake Total 300 / 300 920 / 920 340 / 340 Output Total / Balance 300 / 300 919 / 919 340 / 340 Weight 66.2 kg Intake: IV 300 / 300 200 / 200 100 / 100 Prostaphlin Inj 2 GM In NS Inj 300 / 300 200 / 200 100 / 100 100 ML @ 200 mls/hr IV.SIG Q4H [facility] Rx#:[id number] Oral 720 / 720 240 / 240 Output: Stool Other: # Voids 2 Date of Last Bowel Movement 08/02/18 08/01/18 - Constitutional no acute distress - Routine Respiratory Exam Present: CTA bilaterally - Routine Cardiovascular Exam Present: RRR - Routine Abdominal Exam Present: soft - Routine Extremities Exam Comments: no pedal edema. - Routine Neurological Exam Present: alert, oriented X3 Results - Labs CBC & Chem 7: 07/30/18 05:15 07/31/18 05:45 - Imaging Impressions Chest X-Ray 08/01/18 16:06 CONCLUSION: 1. PICC line in place with the tip projected near the junction of the superior vena cava and right atrium. 2. No acute cardiopulmonary disease. - Procedures Right L5-S1 hemilaminotomy with epidural abscess evacuation; microsurgical technique PICC line placement. Assessment and Plan - Plan Epidural abscess. staph bacteremia s/p L5-S1 laminectomy with epidural abscess evacuation and subsequent parenteral antibiotics for 6-8 weeks as per the discretion of infectious disease. echo with EF 60% and no vegetation. wound culture with MSSA. continue with Oxacillin till 09/18/18 per ID- PICC is in place. repeated blood cultures negative so far. continue with pain control. History of IV drug use. Cessation counseling provided. Avoid IV narcotics. Constipation; resolved- laxatives as needed. hepatitis- f/u as outpatient. Discharge Planning: dc home when [facility]/ outpatient IV antibiotics has been arranged. f/u; pcp and neurosurgery upon discharge.
[2018-08-02] MEDS: Heparin Central Flush 100 UNIT/ML 5 ML Vial IV.FLUSH SCH (12:29)
[2018-08-03] MEDS: Morphine Sulfate Inj 2 MG/ML Vial IV.PUSH PRN ×4 (02:13→22:07)
[2018-08-03] MEDS: oxyCODONE/Acetaminophen 10/325 Tablet PO PRN ×5 (04:04→20:30)
[2018-08-03] MEDS: Heparin Central Flush 100 UNIT/ML 5 ML Vial IV.FLUSH SCH (08:06)
[2018-08-03] MEDS: Senna/Docusate Sodium 8.6/50 MG Tablet PO SCH ×2 (08:07→20:30)
--- NOTE | 2018-08-03 11:52 | P.PNIM ---
Subjective Interval history: in no acute distress. pain seems to be fairly controlled. no fever. hoping that could go home soon. Physical Exam Vital signs: Vital Signs 08/02/18 11:58 08/02/18 16:00 08/02/18 20:00 Temperature 97.8 F 98.2 F 98.4 F Pulse Rate 73 101 H 87 Respiratory Rate 18 18 18 Blood Pressure 105/61 111/71 125/75 Pulse Oximetry 100 99 99 08/03/18 00:00 08/03/18 04:00 08/03/18 07:51 Temperature 97.9 F 97.7 F Pulse Rate 83 72 Respiratory Rate 18 18 16 Blood Pressure 128/79 115/67 Pulse Oximetry 98 98 08/03/18 08:00 08/03/18 08:41 08/03/18 09:06 Temperature 98.1 F Pulse Rate 80 Respiratory Rate 18 16 16 Blood Pressure 119/78 Pulse Oximetry 98 Intake & Output 08/02/18 08/03/18 08/03/18 18:59 06:59 18:59 Intake Total 880 / 880 300 / 300 100 / 100 Balance 880 / 880 300 / 300 100 / 100 Weight 67.9 kg Intake: IV 400 / 400 300 / 300 100 / 100 Prostaphlin Inj 2 GM In NS Inj 400 / 400 300 / 300 100 / 100 100 ML @ 200 mls/hr IV.SIG Q4H [facility] Rx#:[id number] Oral 480 / 480 Other: # Voids 3 Date of Last Bowel Movement 08/01/18 08/01/18 08/01/18 # Bowel Movements 1 - Constitutional no acute distress - Routine Respiratory Exam Present: CTA bilaterally - Routine Cardiovascular Exam Present: RRR - Routine Abdominal Exam Present: soft - Routine Extremities Exam Comments: no pedal edema. - Routine Neurological Exam Present: alert, oriented X3 Results - Labs CBC & Chem 7: 07/30/18 05:15 07/31/18 05:45 - Procedures Right L5-S1 hemilaminotomy with epidural abscess evacuation; microsurgical technique PICC line placement. Assessment and Plan - Plan Epidural abscess. staph bacteremia s/p L5-S1 laminectomy with epidural abscess evacuation and subsequent parenteral antibiotics as per the discretion of infectious disease. echo with EF 60% and no vegetation. wound culture with MSSA. continue with Oxacillin till 09/18/18 per ID- PICC is in place. repeated blood cultures negative so far. continue with pain control. History of IV drug use. Cessation counseling provided. Constipation; resolved- laxatives as needed. hepatitis- f/u as outpatient. Discussed Condition With: the patient and case management. Discharge Planning: dc home when [facility] when outpatient IV antibiotics has been arranged. f/u; pcp and neurosurgery upon discharge.
--- NOTE | 2018-08-03 11:54 | P.DS ---
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 Denies any right leg weakness. Patient also experienced fever over the past few days. Denies any chest pain, shortness of breath, nausea, vomiting. She does report using IV Dilaudid in May. DS: Medications - Discharge Medications Prescriptions: RX: cyclobenzaprine 10 mg PO Q8H PRN #8 tab PRN Reason: Muscle Spasm RX: oxycodone-acetaminophen 1 tab PO Q6H PRN #8 tab PRN Reason: acute pain DS: Summary Hospital Course: patient was admitted with epidural abscess. she underwent evacuation of the abscess by neurosurgery and started on IV antibiotics per ID. PICC line was inserted and she will be discharged home with IV antibiotics. - Time Spent with Patient Total time spent providing and/or coordinating discharge services: Less than 30 minutes - Quality: VTE Deep Vein Thrombosis/Pulmonary Embolism Present on Admission: No Exam Vital signs: Vital Signs 08/02/18 11:58 08/02/18 16:00 08/02/18 20:00 Temperature 97.8 F 98.2 F 98.4 F Pulse Rate 73 101 H 87 Respiratory Rate 18 18 18 Blood Pressure 105/61 111/71 125/75 Pulse Oximetry 100 99 99 08/03/18 00:00 08/03/18 04:00 08/03/18 07:51 Temperature 97.9 F 97.7 F Pulse Rate 83 72 Respiratory Rate 18 18 16 Blood Pressure 128/79 115/67 Pulse Oximetry 98 98 08/03/18 08:00 08/03/18 08:41 08/03/18 09:06 Temperature 98.1 F Pulse Rate 80 Respiratory Rate 18 16 16 Blood Pressure 119/78 Pulse Oximetry 98 Intake & Output 08/02/18 08/03/18 08/03/18 18:59 06:59 18:59 Intake Total 880 / 880 300 / 300 100 / 100 Balance 880 / 880 300 / 300 100 / 100 Weight 67.9 kg Intake: IV 400 / 400 300 / 300 100 / 100 Prostaphlin Inj 2 GM In NS Inj 400 / 400 300 / 300 100 / 100 100 ML @ 200 mls/hr IV.SIG Q4H [facility] Rx#:[id number] Oral 480 / 480 Other: # Voids 3 Date of Last Bowel Movement 08/01/18 08/01/18 08/01/18 # Bowel Movements 1 - Constitutional no acute distress - Routine Respiratory Exam Present: CTA bilaterally - Routine Cardiovascular Exam Present: RRR - Routine Abdominal Exam Present: soft - Routine Extremities Exam Comments: no pedal edema. - Routine Neurological Exam Present: alert, oriented X3 Results Procedures completed during hospitalization: Right L5-S1 hemilaminotomy with epidural abscess evacuation; microsurgical technique PICC line placement. Labs on day of discharge: Preliminary micro results at discharge 07/23/18 14:16 Mycobacterial Culture - Preliminary Abscess - Other No growth in 1 week 07/23/18 14:16 Fungal Culture - Preliminary Abscess - Other No growth in 1 week 07/23/18 14:16 Fungal Culture - Preliminary Abscess - Other No growth in 1 week 07/23/18 14:16 Mycobacterial Culture - Preliminary Abscess - Other No growth in 1 week - Impressions ITS Impressions Lumbar Spine X-Ray 07/23/18 00:00 CONCLUSION: Localization posteriorly at L5-S1. Lumbar Spine MRI 07/23/18 02:39 CONCLUSION: 1. Right paracentral fluid collection posterior to the L5 vertebral body and with surrounding epidural enhancement within the L4/L5 and L5/S1 right lateral recesses and foramina. There is associated mass effect on the transiting right L5 and S1 nerve roots and also the exiting L4 and L5 nerve roots. The fluid collection is nonspecific; since there is a central to right paracentral extruded disc fragment at L4/L5, its possible this represents an epidural hematoma with reactive enhancement. An epidural abscess is possible in the proper clinical setting. The fluid collection itself measures approximately 9 x 16 x 23 mm. The surrounding epidural enhancement is much larger. 2. No evidence of osteomyelitis. 3. Mild and uncomplicated/typical-appearing degenerative changes at L2/L3 and L3/L4 as described. There is an associated focal annular fissure posteriorly of the L3/L4 disc. 4. Perivertebral soft tissues are within normal limits. 5. Chronic L5 pars defects. No associated spondylolisthesis. No acute fracture. Chest X-Ray 08/01/18 16:06 CONCLUSION: 1. PICC line in place with the tip projected near the junction of the superior vena cava and right atrium. 2. No acute cardiopulmonary disease. Discharge Plan - Discharge Disposition Patient Disposition: /Home Health Service - Discharge Condition Condition: Stable - Discharge Order Discharge Orders: Discharge Order (Routine); Ordered 08/03/18 Ordered By: Jose Guerrier - Physicians Team Primary Care Provider: Primary Care Udayi,No Attending Provider: Jose Guerrier Other Providers: Jaspal Bowie MD ; Nayeli Barbour MD ; [facility],Agency
[2018-08-04] MEDS: oxyCODONE/Acetaminophen 10/325 Tablet PO PRN ×6 (00:03→20:34)
[2018-08-04] MEDS: Morphine Sulfate Inj 2 MG/ML Vial IV.PUSH PRN ×3 (06:04→21:24)
[2018-08-04] MEDS: Senna/Docusate Sodium 8.6/50 MG Tablet PO SCH ×2 (08:16→20:34)
[2018-08-04] MEDS: Heparin Central Flush 100 UNIT/ML 5 ML Vial IV.FLUSH SCH (08:16)
--- NOTE | 2018-08-04 09:03 | P.PN ---
Subjective Interval history: Follow-up of patient with epidural abscess status post L5-S1 laminectomy and evacuation of abscess. Patient seen and examined. Patient denies any acute medical complaints. She denies any fever chills. She denies any chest pain or shortness of breath. She denies any bowel or bladder difficulties. She is hoping to be discharged today. Physical Exam Vital signs: Vital Signs 08/03/18 09:06 08/03/18 12:00 08/03/18 12:09 Temperature 97.7 F Pulse Rate 77 Respiratory Rate 16 18 16 Blood Pressure 102/59 L Pulse Oximetry 99 08/03/18 15:33 08/03/18 16:00 08/03/18 16:47 Temperature 97.6 F Pulse Rate 74 Respiratory Rate 16 18 16 Blood Pressure 119/68 Pulse Oximetry 100 08/03/18 19:35 08/03/18 23:59 08/04/18 00:59 Temperature 97.7 F 97.8 F Pulse Rate 79 72 Respiratory Rate 18 18 18 Blood Pressure 110/73 102/58 L Pulse Oximetry 98 98 08/04/18 04:08 08/04/18 08:31 Temperature 97.9 F Pulse Rate 62 Respiratory Rate 18 16 Blood Pressure 103/58 L Pulse Oximetry 98 Intake & Output 08/03/18 08/04/18 08/04/18 18:59 06:59 18:59 Intake Total 300 / 300 1400 / 1400 100 / 100 Output Total 4 / 4 Balance 296 / 296 1400 / 1400 100 / 100 Weight 67 kg Intake: IV 300 / 300 300 / 300 100 / 100 Prostaphlin Inj 2 GM In NS Inj 300 / 300 300 / 300 100 / 100 100 ML @ 200 mls/hr IV.SIG Q4H [facility] Rx#:[id number] Oral 1100 / 1100 Output: Urine 4 / 4 Other: # Voids 5 Date of Last Bowel Movement 08/01/18 08/03/18 08/03/18 Narrative: GENERAL: WDWN female patient, INAD. Awake and alert. Appears comfortable. SKIN: Warm and dry. No rash. PICC line in place RUE, no e/o infection. HEENT: Atraumatic. Normocephalic. Pupils equal and round. No scleral icterus. No injection or drainage. No nasal bleeding or discharge. Mucous membranes pink and moist. NECK: Trachea midline. CARDIOVASCULAR: Regular rate and rhythm. RESPIRATORY: No accessory muscle use. Clear to auscultation. Breath sounds equal bilaterally. GASTROINTESTINAL: Abdomen soft, non-tender, nondistended. Hepatic and splenic margins not palpable. MUSCULOSKELETAL: Extremities without clubbing, cyanosis, or edema. No obvious deformities. NEUROLOGICAL: Awake and alert. No obvious cranial nerve deficits. Motor grossly within normal limits. Able to move all extremities spontaneously. Nonfocal. Normal speech. PSYCHIATRIC: Appropriate mood and affect; insight and judgment normal. Results - Labs CBC & Chem 7: 07/30/18 05:15 07/31/18 05:45 - Procedures Right L5-S1 hemilaminotomy with epidural abscess evacuation; microsurgical technique PICC line placement. Assessment and Plan - Plan Epidural abscess Staph bacteremia s/p L5-S1 laminectomy with epidural abscess evacuation echo with EF 60% and no vegetation. wound culture with MSSA. ID following, continue with Oxacillin till 09/18/18 per ID- PICC is in place. Patient to follow up with Neurosurgery following discharge History of IV drug use Cessation counseling provided. Constipation; resolved laxatives as needed. Hepatitis Hep C reactive LFTs WNL counselled on complete alcohol cessation f/u with GI as outpatient. Code Status: FULL Discussed Condition With: patient, nursing staff, Dr. Arriola Discharge Planning: Patient discharged yesterday. Discharge held up due to setting up ID followup as outpatient. No clinical change. Patient is stable.
[2018-08-04 20:23] VITALS: O2SAT 99
[2018-08-05] MEDS: oxyCODONE/Acetaminophen 10/325 Tablet PO PRN ×3 (00:56→08:36)
[2018-08-05] MEDS: Morphine Sulfate Inj 2 MG/ML Vial IV.PUSH PRN (04:13)
[2018-08-05 04:19] VITALS: RESP 18
[2018-08-05 05:28] VITALS: BP 99/64; PULSE 61; TEMP 97.6
--- NOTE | 2018-08-05 07:38 | P.PN ---
Subjective Interval history: Follow-up of patient with epidural abscess status post L5-S1 laminectomy and evacuation of abscess. Patient seen and examined. Patient denies any acute medical complaints. She reports uneventful night. She denies any fever or chills. Plans for patient to receive 900am dose of her IV antibiotics this morning and then immediately go to her PCPs office and then will have home health nurse come to her home around 1:00 today to begin home IV antibiotic infusion. Discussed with nursing staff, no acute events noted. Physical Exam Vital signs: Vital Signs 08/04/18 08:00 08/04/18 08:31 08/04/18 12:00 Temperature 97.6 F 97.8 F Pulse Rate 65 68 Respiratory Rate 16 16 20 Blood Pressure 113/66 103/64 Pulse Oximetry 97 98 08/04/18 13:42 08/04/18 14:02 08/04/18 16:00 Temperature 97.5 F L Pulse Rate 78 Respiratory Rate 16 16 20 Blood Pressure 111/76 Pulse Oximetry 100 08/04/18 16:45 08/04/18 20:00 08/05/18 00:00 Temperature 98.2 F 97.7 F Pulse Rate 70 72 Respiratory Rate 16 16 16 Blood Pressure 107/66 107/61 Pulse Oximetry 99 99 08/05/18 04:00 08/05/18 04:19 08/05/18 06:44 Temperature 97.6 F Pulse Rate 61 Respiratory Rate 16 18 18 Blood Pressure 99/64 L Pulse Oximetry 99 Intake & Output 08/04/18 08/05/18 08/05/18 18:59 06:59 18:59 Intake Total 300 / 300 300 / 300 Balance 300 / 300 300 / 300 Weight 68 kg Intake: IV 300 / 300 300 / 300 Prostaphlin Inj 2 GM In NS Inj 300 / 300 300 / 300 100 ML @ 200 mls/hr IV.SIG Q4H [facility] Rx#:[id number] Other: # Voids 3 Date of Last Bowel Movement 08/03/18 08/04/18 Narrative: GENERAL: WDWN female patient. Awake and alert. Appears comfortable. In no acute distress. SKIN: Warm and dry. No rash. PICC line in place RUE, no e/o infection. HEENT: Atraumatic. Normocephalic. Pupils equal and round. No scleral icterus. No injection or drainage. No nasal bleeding or discharge. Mucous membranes pink and moist. NECK: Trachea midline. CARDIOVASCULAR: Regular rate and rhythm. RESPIRATORY: No accessory muscle use. Clear to auscultation. Breath sounds equal bilaterally. GASTROINTESTINAL: Abdomen soft, non-tender, nondistended. Hepatic and splenic margins not palpable. MUSCULOSKELETAL: Extremities without clubbing, cyanosis, or edema. No obvious deformities. NEUROLOGICAL: Awake and alert. No obvious cranial nerve deficits. Motor grossly within normal limits. Able to move all extremities spontaneously. Nonfocal. Normal speech. PSYCHIATRIC: Appropriate mood and affect; insight and judgment normal. Results - Labs CBC & Chem 7: 07/30/18 05:15 07/31/18 05:45 - Procedures Right L5-S1 hemilaminotomy with epidural abscess evacuation; microsurgical technique PICC line placement. Assessment and Plan - Plan 08/05 patient is stable. no significant change. not in any acute distress. receiving am IV abx then to be discharge and has new patient appt this am with PCP. Epidural abscess Staph bacteremia s/p L5-S1 laminectomy with epidural abscess evacuation echo with EF 60% and no vegetation. wound culture with MSSA. ID following, continue with Oxacillin till 09/18/18 per ID- PICC is in place. Patient to follow up with Neurosurgery following discharge History of IV drug use Cessation counseling provided. Constipation; resolved laxatives as needed. Hepatitis Hep C reactive LFTs WNL counselled on complete alcohol cessation f/u with GI as outpatient. Code Status: FULL Discussed Condition With: patient,nursing staff, Dr. Arriola
[2018-08-05] MEDS: Heparin Central Flush 100 UNIT/ML 5 ML Vial IV.FLUSH SCH (08:19)
[2018-08-05] MEDS: Senna/Docusate Sodium 8.6/50 MG Tablet PO SCH (09:06)
== END 2018-08-05 09:30 | disposition home health service (06) ==
LOC: NEPC 00:46 → NEDA 05:18 → NEPGCP 06:23 → N05 12:52
PROVIDERS: ADMIT Family Medicine; ATTEND Family Medicine